=== PATIENT | female | born 1985 | race Caucasian/White ===

== ENCOUNTER 2021-12-01 17:38 | Emergency (ER) | payer MEDICAID, SELFPAY ==
[2021-12-01 18:10] VITALS: BP 162/74; PULSE 68; RESP 16; TEMP 37.1; O2SAT 100; BMI 26.0
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
[2021-12-01] MEDS: clindamycin 150 mg Capsule 300 MG PO (19:24)
[2021-12-01] MEDS: HYDROcodone-acetaminophen 5-325 mg Tablet 1 TAB PO (19:24)
[2021-12-01] MEDS: dexamethasone 10 mg/mL INJ IM (19:25)
== END 2021-12-01 19:42 | disposition home or self-care (01) ==
PROVIDERS: Emergency Provider Nurse Practitioner Family
DX: K04.7 Periapical abscess without sinus (principal)
CPT/HCPCS: 96372; 99283; J1100

== ENCOUNTER 2021-12-24 18:47 | Emergency (ER) | payer MEDICAID, SELFPAY ==
[2021-12-24 18:59] VITALS: BP 132/87; PULSE 72; RESP 18; TEMP 36.8; O2SAT 99; BMI 25.1
--- NOTE | 2021-12-24 19:41 | CTR_ITS ---
PROCEDURE INFORMATION: Exam: CT Abdomen And Pelvis Without Contrast Exam date and time: 12/24/2021 7:41 PM Age: 36 years old Clinical indication: Abdominal pain; Right; Patient HX: HX of stones C/O R flank pain w difficulty urinating TECHNIQUE: Imaging protocol: Computed tomography of the abdomen and pelvis without contrast. Radiation optimization: All CT scans at this facility use at least one of these dose optimization techniques: automated exposure control; mA and/or kV adjustment per patient size (includes targeted exams where dose is matched to clinical indication); or iterative reconstruction. COMPARISON: CT Abdomen/Pelvis Renal [id number] 02/13/2019 10:43 PM RADIATION DOSE METRICS: Total DLP (mGy-cm): 790.52 FINDINGS: Liver: Normal. No mass. Gallbladder and bile ducts: Normal. No calcified stones. No ductal dilation. Pancreas: Normal. No ductal dilation. Spleen: Normal. No splenomegaly. Adrenal glands: Normal. No mass. Kidneys and ureters: Multiple bilateral renal calculi. No obstructing ureteral calculus identified. No hydronephrosis or hydroureter. Stomach and bowel: Colonic constipation is present. Appendix: No evidence of appendicitis. Intraperitoneal space: Unremarkable. No free air. No significant fluid collection. Vasculature: Unremarkable. No abdominal aortic aneurysm. Lymph nodes: Unremarkable. No enlarged lymph nodes. Urinary bladder: Unremarkable as visualized. Reproductive: Unremarkable as visualized. Bones/joints: Unremarkable. No acute fracture. Soft tissues: Unremarkable. CT/CT kidney stone [id number] IMPRESSION: 1. Multiple bilateral renal calculi. No obstructing ureteral calculus identified. No hydronephrosis or hydroureter. 2. Colonic constipation is present.
[2021-12-24] MEDS: sodium chloride 0.9% 1,000 ML 999 ML IV (19:57)
[2021-12-24 20:03] VITALS: RESP 16
[2021-12-24] MEDS: HYDROmorphone 1 mg/mL INJ 1 mL IVP ×2 (20:03→21:29)
[2021-12-24] MEDS: ondansetron 2 mg/ML SDV 2 mL 4 MG IVP (20:03)
[2021-12-24 20:04] LABS: Basophils % 0.4 %; Eosinophils # 0.2 10^3/uL (0.0-0.8); Eosinophils % 3.3 %; Hematocrit 34.1 % (37.0-47.0); Hemoglobin 10.4 g/dL (11.5-15.3); Lymphocytes # 2.2 10^3/uL (0.8-4.8); Lymphocytes % 42.8 %; Mean Corpuscular HGB Conc 30.5 g/dL (30.0-36.0); Mean Corpuscular Hemoglobin 24.8 pg (28.0-34.0); Mean Corpuscular Volume 81.4 fl (81-99); Monocytes # 0.4 10^3/uL (0.2-0.9); Neutrophils # 2.33 10^3/uL (1.8-7.7); Neutrophils % 45.5 %; Nucleated Red Blood Cells % 0 %; Platelet Count 250 10^3/cmm (130-400); Red Blood Count 4.19 10^6/uL (4.1-5.3); White Blood Count 5.1 10^3/uL (4.0-10.0)
[2021-12-24 20:14] LABS: Add Urine Microscopic? YES; Bilirubin Urine Neg (Negative); Blood Urine 2+ (Negative); Glucose Urine UA Norm (Normal); Ketones Urine Negative (Negative); Leukocyte Esterase Urine 2+ (Negative); Nitrate Urine Negative (Negative); Protein Urine Neg (Negative); Specific Gravity, Urine 1.015 (1.005-1.030); Urine Appearance Turbid (CLEAR); Urine Color Yellow (Yellow); Urobilinogen Urine Norm (Negative); pH Urine 5 (5-7)
[2021-12-24] MEDS: cefTRIAXone 1,000 MG in sodium chloride 0.9% (plus) 50 ML 100 MG IV (20:18)
[2021-12-24 20:20] LABS: Lactate (Lactic Acid level) 1.8 mmol/L (0.5-2.2)
[2021-12-24 20:21] VITALS: BP 127/60; PULSE 66; RESP 16; O2SAT 94
[2021-12-24 20:22] LABS: Alanine Aminotransferase 9 U/L (0-33); Albumin Level 3.9 g/dL (3.5-5.2); Alkaline Phosphatase 44 IU/L (35-105); Anion Gap 13.9 (5-19); Aspartate Amino Transferase 12 U/L (0-32); Blood Urea Nitrogen 7 mg/dL (6-20); Carbon Dioxide 23 mmol/L (22-29); Chloride 103 mmol/L (98-107); Globulin 2.4 g/dL (1.3-4.6); Glucose 94 mg/dL (65-115); Osmolality Calculated 280 mOsm/kg (285-295); Potassium 3.9 mmol/L (3.5-5.1); Sodium 136 mmol/L (136-145); Total Bilirubin 0.2 mg/dL (0.15-1.2); Total Protein 6.3 g/dL (6.6-8.7)
[2021-12-24 20:23] LABS: Add Urine Culture? No; Bacteria Urine 2+ /hpf; Squamous Epithelial Cell Urine 55-80 /hpf (0-5); WBC Urine 25-40 /hpf (0-5)
[2021-12-24 20:25] LABS: Creatinine Clr Calc Pharmacy 229.6105
[2021-12-24 20:27] LABS: HCG, Serum Qual Negative (Negative)
--- NOTE | 2021-12-24 21:17 | ED_ITS ---
HPI - Female Genitourinary General: Chief complaint: Urogenital-Female Stated complaint: Possible Kidney Failure Time Seen by Provider: 12/24/21 19:19 Source: patient and family History of Present Illness: 36-year-old female with a history of kidney stones, multiple procedures, and pyelonephritis with sepsis. She presents with right-sided flank pain for the past 24 hours or more. She has vomited a couple of times. She has been nauseated. She says she has had a low-grade fever at home. She also says she has not been able to urinate in 12 hours or so. She notes that yesterday her urine was bloody, and stringy . MD elicited complaint: dysuria, pelvic pain and difficulty urinating Pertinent past history: pyelonephritis Onset (ago): hour(s) Location of symptoms: suprapubic, RLQ and flank Severity: moderate Female Urogenital Radiation: R Flank Quality of pain: stabbing and aching Consistency: constant and progressively worsening Vaginal discharge: none Vaginal bleeding: none Urinary symptoms: Difficulty Urinating, Dysuria, Flank Pain and Hematuria Exacerbating factors: urination Associated symptoms: Reports abdominal pain, fevers/chills and nausea; Deny short of breath, vaginal discharge or weakness Review of Systems Const: Reports: fever(s) and chills ENMT: Denies: throat pain Card: Denies: chest pain Resp: Denies: dyspnea, productive cough or non-productive cough GI: Reports: abdominal pain, nausea and vomiting; Denies: diarrhea : Reports: difficulty voiding, dysuria and hematuria; Denies: vaginal discharge Physical Exam Const: COMMON NORMALS: alert GENERAL APPEARANCE: ill appearing NUTRITIONAL APPEARANCE: thin ORIENTATION/CONSCIOUSNESS: Yes awake, Yes orien naldo to person, Yes oriented to place and Yes oriented to time HENMT: COMMON NORMALS: normocephalic and atraumatic HEAD & SCALP: normocephalic and atraumatic FACE & SINUS: normal facial exam Eye: COMMON NORMALS: Equal, round and reactive pupils present and EOMs intact bilaterally PUPIL: Yes Equal, round and reactive pupils present Chest: COMMONS NORMALS: normal inspection of the chest Resp: COMMON NORMALS: normal respiratory effort, No use of accessory muscles and clear to auscultation bilaterally AUSCULTATION: clear to auscultation bilaterally Cardio: COMMON NORMALS: regular rate and regular rhythm RATE: regular rate RHYTHM: regular rhythm GI: COMMON NORMALS: Normal to inspection, nondistended, normoactive bowel sounds present and Soft to palpation PALPATION: Yes Soft to palpation and Yes Tenderness to palpation present (GI) (Suprapubic, right flank right lower) : BLADDER/KIDNEY EXAM: Yes CVA tenderness on the right Back/Pelvis: GENERAL BACK: Yes CVA tenderness Neuro: SENSORIUM/ORIENTATION: Yes alert, Yes oriented to person, Yes oriented to place and Yes oriented to time Course Vital Signs: Vital signs: Vital Signs Temperature 98.2 F 12/24/21 18:59 Pulse Rate 82 12/24/21 22:07 Respiratory Rate 16 12/24/21 22:07 Blood Pressure 132/86 12/24/21 22:07 Pulse Oximetry 97 12/24/21 22:07 [facility] - Female Medical Decision Making 36-year-old female with right-sided flank pain. White blood cell count is 5. Hemoglobin is 10.4. BMP is normal. Urinalysis is contaminated, but does show significant leukourea and bacteriuria. CT stone protocol shows multiple bilateral renal calculi but no ureteral calculi, and no hydronephrosis or obstruction. There is some constipation present. She has received IV fluid and Rocephin here. She is received pain medication, and is feeling somewhat better. We will give her some Toradol, and allow her discharged on antibiotics and pain medication as well as antiemetics. Outpatient urology referral given her problems in the past. Lab Data : 12/24/21 19:53 12/24/21 19:53 Radiology Impressions Abdomen/Pelvis CT 12/24/21 19:41 IMPRESSION: 1. Multiple bilateral renal calculi. No obstructing ureteral calculus identified. No hydronephrosis or hydroureter. 2. Colonic constipation is present. Laboratory Results WBC 5.1 10^3/uL (4.0-10.0) 12/24/21 19:53 RBC 4.19 10^6/uL (4.1-5.3) 12/24/21 19:53 Hgb 10.4 g/dL (11.5-15.3) L 12/24/21 19:53 Hct 34.1 % (37.0-47.0) L 12/24/21 19:53 MCV 81.4 fl (81-99) 12/24/21 19:53 MCH 24.8 pg (28.0-34.0) L 12/24/21 19:53 MCHC 30.5 g/dL (30.0-36.0) 12/24/21 19:53 RDW 18.0 % (12.1-15.1) H 12/24/21 19:53 Plt Count 250 10^3/cmm (130-400) 12/24/21 19:53 MPV 10.0 fL (7.4-10.4) 12/24/21 19:53 Neut % (Auto) 45.5 % 12/24/21 19:53 Lymph % (Auto) 42.8 % 12/24/21 19:53 [place] % (Auto) 8.0 % 12/24/21 19:53 Eos % (Auto) 3.3 % 12/24/21 19:53 Baso % (Auto) 0.4 % 12/24/21 19:53 Neut # (Auto) 2.33 10^3/uL (1.8-7.7) 12/24/21 19:53 Lymph # (Auto) 2.2 10^3/uL (0.8-4.8) 12/24/21 19:53 [place] # (Auto) 0.4 10^3/uL (0.2-0.9) 12/24/21 19:53 Eos # (Auto) 0.2 10^3/uL (0.0-0.8) 12/24/21 19:53 Baso # (Auto) 0.0 10^3/uL (0.0-0.1) 12/24/21 19:53 Nucleated RBC % (auto) 0 % 12/24/21 19:53 Nucleated RBCs # 0.0 /100WBC 12/24/21 19:53 Sodium 136 mmol/L (136-145) 12/24/21 19:53 Potassium 3.9 mmol/L (3.5-5.1) 12/24/21 19:53 Chloride 103 mmol/L (98-107) 12/24/21 19:53 Carbon Dioxide 23 mmol/L (22-29) 12/24/21 19:53 Anion Gap 13.9 (5-19) 12/24/21 19:53 BUN 7 mg/dL (6-20) 12/24/21 19:53 Creatinine 0.3 mg/dL (0.5-0.9) L 12/24/21 19:53 GFR Calculation 249.0 mL/min (90-130) H 12/24/21 19:53 Glucose 94 mg/dL (65-115) 12/24/21 19:53 Calculated Osmolality 280 mOsm/kg (285-295) L 12/24/21 19:53 Lactate 1.8 mmol/L (0.5-2.2) 12/24/21 19:53 Calcium 9.0 mg/dL (8.5-10.5) 12/24/21 19:53 Total Bilirubin 0.2 mg/dL (0.15-1.2) 12/24/21 19:53 AST 12 U/L (0-32) 12/24/21 19:53 ALT 9 U/L (0-33) 12/24/21 19:53 Alkaline Phosphatase 44 IU/L (35-105) 12/24/21 19:53 C-Reactive Protein 3.0 mg/L (0.0-4.9) 12/24/21 19:53 Total Protein 6.3 g/dL (6.6-8.7) L 12/24/21 19:53 Albumin 3.9 g/dL (3.5-5.2) 12/24/21 19:53 Globulin 2.4 g/dL (1.3-4.6) 12/24/21 19:53 HCG, Qual Negative (Negative) 12/24/21 19:53 Urine Color Yellow (Yellow) 12/24/21 20:00 Urine Appearance Turbid (CLEAR) 12/24/21 20:00 Urine pH 5 (5-7) 12/24/21 20:00 Ur Specific [place] 1.015 (1.005-1.030) 12/24/21 20:00 Urine Protein Neg (Negative) 12/24/21 20:00 Urine Glucose (UA) Norm (Normal) 12/24/21 20:00 Urine Ketones Negative (Negative) 12/24/21 20:00 Urine Blood 2+ (Negative) H 12/24/21 20:00 Urine Nitrate Negative (Negative) 12/24/21 20:00 Urine Bilirubin Neg (Negative) 12/24/21 20:00 Urine Urobilinogen Norm mg/dL (Negative) 12/24/21 20:00 Ur Leukocyte Esterase 2+ (Negative) H 12/24/21 20:00 Urine RBC 5-10 /hpf (0-2) H 12/24/21 20:00 Urine WBC 25-40 /hpf (0-5) H 12/24/21 20:00 Ur Squamous Epith Cells 55-80 /hpf (0-5) H 12/24/21 20:00 Amorphous Sediment Not Reportable 12/24/21 20:00 Urine Bacteria 2+ /hpf (NONE) H 12/24/21 20:00 Discharge Plan Discharge Patient Disposition: Home Clinical Impression: Pyelonephritis Condition: Stable Prescriptions: New Zofran 4 mg tablet 4 mg PO Q6H PRN (Reason: nausea and vomiting) Qty: 10 0RF Percocet 7.5-325 mg tablet 1 tab PO Q6H PRN (Reason: pain) Qty: 10 0RF cefdinir 300 mg capsule 300 mg PO BID Qty: 14 0RF Discontinued hydrocodone-acetaminophen 5-325 mg tablet 1 tab PO Q6H PRN (Reason: pain) Qty: 7 0RF Discharge Orders: Discharge ED (Routine); Ordered 12/24/21 Ordered By: Al Yanes Referrals: Jairon Segovia MD [Physician] - Discharge Diet: Advance as tolerated Discharge Activity: Increase activity as tolerated Patient Instructions: Kidney Infection (ED), Opioid Safety Activity Restrictions/Additional Instructions: Return for fever greater than 100 despite 2-3 doses of antibiotics, vomiting liquids or medications, worsening pain despite treatment, any other concerning symptoms. A case management order has been placed for outpatient referral to uro logy. Coding Level of Care Code ED Hand Sewer Shoes for Chg Fwd Exam Comprehensive
[2021-12-24 21:29] VITALS: RESP 16
[2021-12-24 22:07] VITALS: BP 132/86; PULSE 82; RESP 16; O2SAT 97
[2021-12-24] MEDS: oxyCODONE-APAP 5-325 mg Tablet 2 TAB PO (22:37)
[2021-12-24 22:38] VITALS: BP 130/80; PULSE 77; RESP 16; O2SAT 98
[2021-12-24] MEDS: ondansetron 4 MG Tablet 8 MG PO (22:45)
--- NOTE | 2021-12-26 05:33 | DCPLANNER ---
Addendum entered by Jimena Kang 01/02/22 06:43: Patient had a follow up appointment scheduled for 01.01.[address] Romero office -patient did attend appointment. Original Note: vendor relationship manager had message to schedule a follow up appointment for patient with Dr. Segovia. vendor relationship manager emailed patients information to Deepak Caballero and Julie in the office of Dr. Segovia. Patients information will be printed and reviewed. Clinic will call patient with appointment information.
== END 2021-12-24 22:45 | disposition home or self-care (01) ==
PROVIDERS: Emergency Provider Emergency Medicine
DX: N12 Tubulo-interstitial nephritis, not specified as acute or chronic (principal)
CPT/HCPCS: 74176; 80053; 81001; 83605; 84703; 85025; 86140; 87040; 96361; 96365; 96375; 96376; 99284; J0696; J1170; J2405; J7030; Q0162

== ENCOUNTER 2022-01-01 13:59 | Outpatient (CLI) | payer MEDICAID, SELFPAY ==
--- NOTE | 2022-01-01 14:00 | XR_ITS ---
WS: [id number] KUB, AP view, 01/01/2022 Clinical Data: PYELONEPHRITIS Comparison: KUB, 02/18/2019. Findings: Bilateral renal calculi are seen with little change. Both kidneys are obscured by overlying bowel gas and fecal matter. No pelvic calcifications are seen. There is a minimal lumbar levoscoliosis. XR/XR KUB [id number] Impression: No change in bilateral renal calculi.
== END 2022-01-01 14:00 | disposition home or self-care (01) ==
LOC: RAD 14:00
PROVIDERS: PCP Urology; Visit Provider Urology
DX: N12 Tubulo-interstitial nephritis, not specified as acute or chronic (principal); N39.0 Urinary tract infection, site not specified
CPT/HCPCS: 74018; 81003; 87077; 87086; 87184

== ENCOUNTER 2022-05-06 00:06 | Emergency (ER) | payer BC, MEDICAID, SELFPAY ==
[2022-05-06 00:12] VITALS: BP 164/84; PULSE 90; RESP 18; TEMP 36.5; O2SAT 100; BMI 25.1
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
[2022-05-06 00:47] VITALS: RESP 20; O2SAT 99
[2022-05-06] MEDS: fentaNYL 50 mcg/mL INJ 2mL 25 MCG IVP (00:47)
[2022-05-06] MEDS: ondansetron 2 mg/ML SDV 2 mL 4 MG IVP (00:48)
[2022-05-06] MEDS: sodium chloride 0.9% 1,000 ML 999 ML IV (00:48)
[2022-05-06 02:51] VITALS: RESP 18; O2SAT 98
[2022-05-06] MEDS: clindamycin 150 mg Capsule 300 MG PO (02:51)
[2022-05-06] MEDS: bacitracin ointment Pkt 1 EACH TOPICAL (02:51)
[2022-05-06] MEDS: oxyCODONE 5 mg IR Tab/Cap PO (02:51)
[2022-05-06 03:09] VITALS: BP 139/82; PULSE 87; RESP 18; O2SAT 99
== END 2022-05-06 03:13 | disposition home or self-care (01) ==
PROVIDERS: Emergency Provider Emergency Medicine; PCP Urology
DX: S61.512A Laceration without foreign body of left wrist, initial encounter (principal); S61.216A Laceration without foreign body of right little finger without damage to nail, initial encounter; W25.XXXA Contact with sharp glass, initial encounter
CPT/HCPCS: 12002; 12032; 73110; 73130; 96361; 96374; 96375; 99284; J2405; J3010; J7030

== ENCOUNTER 2022-06-20 07:36 | Outpatient (CLI) | payer BC, MEDICAID, SELFPAY ==
--- NOTE | 2022-06-20 07:49 | XR_ITS ---
WS: [id number] Exam: XR KUB [id number] Date/Time of Exam: 06/20/2022 7:51 AM Reason For Exam: N20.0 - Calculus of kidney Comparison 01/01/2022. No bowel obstruction or free air. Multiple calcifications superimpose the renal silhouettes and appar ently represent known renal stones. No sign of organ enlargement. Regional bony elements are intact. Mild lumbar scoliosis. XR/XR KUB [id number] IMPRESSION: 1. Multiple bilateral renal stones. 2. No acute abdominal process.
== END 2022-06-20 07:37 | disposition home or self-care (01) ==
LOC: RAD 07:38
PROVIDERS: PCP Nurse Practitioner; Visit Provider Urology
DX: N20.0 Calculus of kidney (principal); R33.9 Retention of urine, unspecified
CPT/HCPCS: 74018; 81003; 87086

== ENCOUNTER 2022-07-13 18:41 | Emergency (ER) | payer BC, MEDICAID, SELFPAY ==
[2022-07-13 18:55] VITALS: BP 109/76; PULSE 61; RESP 16; TEMP 36.8; O2SAT 98; BMI 24.7
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
[2022-07-13] MEDS: bacitracin ointment Pkt 1 EACH TOPICAL (19:40)
[2022-07-13] MEDS: HYDROcodone-acetaminophen 7.5-325 mg Tablet 1 TAB PO (19:40)
== END 2022-07-13 19:42 | disposition home or self-care (01) ==
PROVIDERS: Emergency Provider Nurse Practitioner Family; PCP Nurse Practitioner
DX: T23.241A Burn of second degree of multiple right fingers (nail), including thumb, initial encounter (principal); X19.XXXA Contact with other heat and hot substances, initial encounter
CPT/HCPCS: 99283

== ENCOUNTER 2022-07-30 12:34 | Emergency (ER) | payer BC, MEDICAID, SELFPAY ==
[2022-07-30 12:38] VITALS: BP 127/64; PULSE 74; RESP 18; TEMP 36.7; O2SAT 96; BMI 23.9
--- NOTE | 2022-07-30 13:00 | ED_ITS ---
HPI - Skin/Abscess/Foreign Bdy General: Chief complaint: Skin/Abscess/Foreign Body Stated complaint: Poison Jeanette all over body Time Seen by Provider: 07/30/22 13:00 History of Present Illness: 37-year-old female comes in today for complaints of rash and itching. Patient reports exposure Saturday evening. Since then patient has increasing rash and itchiness and now has swelling to the face. Patient appears nontoxic. Patient appears in no pain. Associated symptoms: Deny fever(s) Review of Systems Const: Denies: fever(s) Card: Denies: chest pain Resp: Denies: dyspnea Skin/Breast: Reports: rash PFSH ED PFSH: Medical History Bilateral kidney stones delivery delivered x 5 H/O clavicle fracture Recurrent UTI Surgical History Status post laser lithotripsy of ureteral calculus Status post placement of ureteral stent Family History Mother , age 50 Cancer throat Lung disease Father Multiple sclerosis Social History Smoking and tobacco status: former smoker Alcohol intake: never Marital status: Current occupational status: unemployed History of recent travel: No Female Reproductive History: Date of last menstrual period: 07/11/22 Physical Exam Const: COMMON NORMALS: alert HENMT: COMMON NORMALS: Normal external nose present HEAD & SCALP: other (Mild facial swelling and redness.) NOSE: Normal external nose present THROAT: posterior oropharynx normal Neck/C-Spine: COMMON NORMALS: full ROM Resp: COMMON NORMALS: normal respiratory effort and clear to auscultation bilaterally AUSCULTATION: clear to auscultation bilaterally Cardio: COMMON NORMALS: regular rate RATE: regular rate Extremity: COMMON NORMALS: normal to inspection Neuro: SENSORIUM/ORIENTATION: Yes alert Skin: RASHES: rashes noted (Patchy rash to arms, neck and face.) Course Vital Signs: Vital signs: Vital Signs Temperature 98.0 F 07/30/22 12:38 Pulse Rate 74 07/30/22 12:38 Respiratory Rate 18 07/30/22 12:38 Blood Pressure 127/64 07/30/22 12:38 Pulse Oximetry 96 07/30/22 12:38 Oxygen Delivery Me thod 07/30/22 12:38 MDM - Skin/Abscess/Foreign Bdy Medicial Decision Making Patient comes in today for complaints of rash secondary to poison jeanette exposure. On exam patient has patchy rash to the upper extremities, neck and face. Patient also has some mild facial swelling and redness. Respirations are even lungs are clear to auscultation. Differential diagnosis includes but not limited to contact dermatitis, anaphylaxis, pruritus. No signs of serious reaction is noted. Patient does not appear to have anaphylaxis. Patient appears to have contact dermatitis to most likely poison jeanette or other similar plant. Patient was given 40 mg of triamcinolone IM to help with facial swelling and skin reaction. We will continue with prednisone 20 mg daily for 10 days. Reviewed usual course for poison jeanette and the reasons for taking prednisone and other steroids to help with facial swelling. Discussed the use of using antihistamine and calamine lotion for comfort. Patient reported understanding of care plan need for follow-up or return to ER. Discharge Plan Discharge Patient Disposition: Home Clinical Impression: Contact dermatitis Qualifiers: Contact dermatitis type: unspecified Contact dermatitis trigger: non-food plants Qualified Code(s): L25.5 - Unspecified contact dermatitis due to plants, except food Condition: Stable Prescriptions: New prednisone 20 mg tablet 20 mg PO DAILY Qty: 10 0RF No Action levothyroxine 100 mcg capsule 100 mcg PO BID potassium citrate 10 mEq (1,080 mg) tablet extended release 10 meq PO BID Qty: 60 12RF bacitracin 500 unit/gram ointment 1 applic topical BID Qty: 28 0RF hydrocodone-acetaminophen 5-325 mg tablet 1 tab PO Q6H PRN (Reason: pain) 3 Days Qty: 6 0RF Discharge Orders: Discharge ED (Routine); Ordered 07/30/22 Ordered By: Bryant Gruber Referrals: Isaias Restrepo FNP [Primary Care Provider] - Discharge Diet: Usual diet Discharge Activity: Increase activity as tolerated Patient Instructions: Poison Jeanette (ED) Activity Restrictions/Additional Instructions: Use diphenhydramine, Benadryl, as needed for itching and discomfort. Drink plenty of water with medication. If Benadryl makes you too sleepy you may use Claritin or Zyrtec, 1-2 tabs twice a day for itching and discomfort. Take prednisone 20 mg daily for the next 10 days. Use calamine lotion for further comfort. Follow-up with primary care as needed. Return to ER for new concerns. Coding Level of Care Code ED Pediatric Critical Care Nurse for Prisca Case
[2022-07-30] MEDS: triamcinolone 40 mg/mL SDV IM (13:12)
== END 2022-07-30 13:18 | disposition home or self-care (01) ==
PROVIDERS: Emergency Provider Nurse Practitioner Family; PCP Nurse Practitioner
DX: L25.5 Unspecified contact dermatitis due to plants, except food (principal); Z87.891 Personal history of nicotine dependence
CPT/HCPCS: 96372; 99284; J3301

== ENCOUNTER 2022-08-08 06:49 | Emergency (ER) | payer BC, MEDICAID, SELFPAY ==
[2022-08-08] VITALS (10 sets, daily range): BP systolic 100–188; BP diastolic 48–90; PULSE 48–65; RESP 14–22; TEMP 36.6; O2SAT 95–100; BMI 24.7
--- NOTE | 2022-08-08 06:58 | ED_ITS ---
HPI - Abdominal Pain General: Chief Complaint: Abdominal Pain Stated Complaint: Flank Pain Time Seen by Provider: 08/08/22 06:50 Source: patient and EMS Mode of arrival: EMS Limitations: no limitations History of Present Illness: Patient with complaints of right flank pain and right lower quadrant abdominal pain since 130 this morning. Patient states she has a history of multiple kidney stones. She states she is on multiple ureteral stents for kidney stones. She is also had history of urinary tract infections and sepsis from urinary tract infection. She reports she has had a tubal ligation. She was given 30 mg of Toradol and 4 mg Zofran prior to arrival by EMS. She already has established care with urologist Dr. Segovia. elicited complaint: abdominal pain and flank pain Pertinent past history: kidney stones Onset (ago): hour(s) (6) Pain Consistency: constant and colicky Location: RLQ and R flank Severity: similar to previous episodes Pain scale (0-10): 10 Quality: cramping and sharp Radiation: RLQ Exacerbating factors: nothing Relieving factors: nothing Associated Symptoms: Reports dysuria, hematuria, nausea and vomiting; Denies chills and fever(s) Treatments prior to arrival: other (Toradol and Zofran by EMS) Related Data: Date of Last Menstrual Period: 07/10/22 Review of Systems Const: Denies: fever(s) or chills Eyes: Denies: change in vision ENMT: Denies: throat pain Card: Denies: chest pain or palpitations Resp: Denies: dyspnea or wheezing GI: Reports: abdominal pain, nausea and vomiting : Reports: flank pain, dysuria and hematuria Musc: Denies: neck pain Skin/Breast: Denies: rash or pruritus Neuro: Denies: headache(s) or numbness in extremities Psych: Reports: anxiety Tc/Lymph: Denies: enlarged lymph nodes PFSH ED PFSH: Medical History Bilateral kidney stones delivery delivered x 5 H/O clavicle fracture Recurrent UTI Surgical History Status post laser lithotripsy of ureteral calculus Status post placement of ureteral stent Family History Mother , age 50 Cancer throat Lung disease Father Multiple sclerosis Social History Smoking and tobacco status: former smoker Alcohol intake: never Marital status: Current occupational status: unemployed History of recent travel: No Female Reproductive History: Date of last menstrual period: 07/10/22 Physical Exam Const: COMMON NORMALS: patient oriented x3, alert and well nourished GENERAL APPEARANCE: cooperative OTHER: Moderate anxiety HENMT: COMMON NORMALS: normocephalic and atraumatic HEAD & SCALP: normocephalic and atraumatic Eye: COMMON NORMALS: EOMs intact bilaterally Neck/C-Spine: COMMON NORMALS: full ROM, no lymphadenopathy, supple and no JVD Lymph: LYMPHATIC: no lymphadenopathy noted Chest: COMMONS NORMALS: normal inspection of the chest and normal palpation of entire chest wall Resp: COMMON NORMALS: normal respiratory effort, No retractions, No use of accessory muscles and clear to auscultation bilaterally AUSCULTATION: clear to auscultation bilaterally Cardio: COMMON NORMALS: no JVD, regular rate, regular rhythm and Peripheral pulses 2+ throughout RATE: regular rate RHYTHM: regular rhythm PERIPHERAL PULSES: Peripheral pulses 2+ throughout GI: COMMON NORMALS: Soft to palpation PALPATION: Yes Soft to palpation OTHER: Moderate right lower quadrant abdominal pain. Normoactive bowel sounds. No hepatosplenomegaly. : OTHER: Moderate right flank pain. No rash. Back/Pelvis: OTHER: Moderate right flank pain. Midline of back is nontender. No evidence of injury. Extremity: COMMON NORMALS: normal to inspection and full ROM Neuro: COMMON NORMALS: patient oriented x3, CN's II-XII intact bilaterally, moves all extremities, no focal motor deficits and no sensory deficits noted SENSORIUM/ORIENTATION: Yes alert Psych: COMMON NORMALS: mental status grossly normal, Normal thought process present, cooperative and speech normal SPEECH: Yes normal speech THOUGHT PROCESS: Normal thought process present Skin: COMMON NORMALS: no rashes or lesions noted GENERAL SKIN EXAM: no rashes or lesions noted OTHER: No rash or ecchymoses. Course Vital Signs: Vital signs: Vital Signs Temperature 97.9 F 08/08/22 06:49 Pulse Rate 50 L 08/08/22 09:23 Respiratory Rate 14 08/08/22 09:23 Blood Pressure 100/48 08/08/22 09:23 Pulse Oximetry 98 08/08/22 09:23 Oxygen Delivery Me thod 08/08/22 06:55 MDM - Abdominal Pain Medical Decision Making Likely patient has renal colic due to ureterolithiasis. 1022: Patient feeling much better. Nausea has resolved. Lab Data : 08/08/22 07:00 08/08/22 07:00 Labs/Radiology: Radiology Impressions Abdomen/Pelvis CT 08/08/22 06:57 IMPRESSION: Passing right UVJ/intravesical stone, resulting in [id number] hydronephrosis. Laboratory Results WBC 19.8 10^3/uL (4.0-10.0) H 08/08/22 07:00 RBC 5.08 10^6/uL (4.1-5.3) 08/08/22 07:00 Hgb 12.6 g/dL (11.5-15.3) 08/08/22 07:00 Hct 41.5 % (37.0-47.0) 08/08/22 07:00 MCV 81.7 fl (81-99) 08/08/22 07:00 MCH 24.8 pg (28.0-34.0) L 08/08/22 07:00 MCHC 30.4 g/dL (30.0-36.0) 08/08/22 07:00 RDW 17.2 % (12.1-15.1) H 08/08/22 07:00 Plt Count 370 10^3/cmm (130-400) 08/08/22 07:00 MPV 11.2 fL (7.4-10.4) H 08/08/22 07:00 Neut % (Auto) 77.2 % 08/08/22 07:00 Lymph % (Auto) 14.9 % 08/08/22 07:00 [place] % (Auto) 6.3 % 08/08/22 07:00 Eos % (Auto) 0.3 % 08/08/22 07:00 Baso % (Auto) 0.3 % 08/08/22 07:00 Neut # (Auto) 15.31 10^3/uL (1.8-7.7) H 08/08/22 07:00 Lymph # (Auto) 3.0 10^3/uL (0.8-4.8) 08/08/22 07:00 [place] # (Auto) 1.2 10^3/uL (0.2-0.9) H 08/08/22 07:00 Eos # (Auto) 0.1 10^3/uL (0.0-0.8) 08/08/22 07:00 Baso # (Auto) 0.1 10^3/uL (0.0-0.1) 08/08/22 07:00 Nucleated RBC % (auto) 0 % 08/08/22 07:00 Nucleated RBCs # 0.0 /100WBC 08/08/22 07:00 Sodium 135 mmol/L (136-145) L 08/08/22 07:00 Potassium 4.2 mmol/L (3.5-5.1) 08/08/22 07:00 Chloride 98 mmol/L (98-107) 08/08/22 07:00 Carbon Dioxide 24 mmol/L (22-29) 08/08/22 07:00 Anion Gap 17.2 (5-19) 08/08/22 07:00 BUN 14 mg/dL (6-20) 08/08/22 07:00 Creatinine 0.4 mg/dL (0.5-0.9) L 08/08/22 07:00 GFR Calculation 177.7 mL/min (90-130) H 08/08/22 07:00 Glucose 134 mg/dL (65-115) H 08/08/22 07:00 Calculated Osmolality 282 mOsm/kg (285-295) L 08/08/22 07:00 Calcium 9.5 mg/dL (8.5-10.5) 08/08/22 07:00 Urine Color Yellow (Yellow) 08/08/22 07:00 Urine Appearance Sl hazy (CLEAR) A 08/08/22 07:00 Urine pH 8 (5-7) H 08/08/22 07:00 Ur Specific [place] 1.010 (1.005-1.030) 08/08/22 07:00 Urine Protein Neg (Negative) 08/08/22 07:00 Urine Glucose (UA) Norm (Normal) 08/08/22 07:00 Urine Ketones Negative (Negative) 08/08/22 07:00 Urine Blood 2+ (Negative) H 08/08/22 07:00 Urine Nitrate Negative (Negative) 08/08/22 07:00 Urine Bilirubin Neg (Negative) 08/08/22 07:00 Urine Urobilinogen Norm mg/dL (Negative) 08/08/22 07:00 Ur Leukocyte Esterase Negative (Negative) 08/08/22 07:00 Urine RBC 5-10 /hpf (0-2) H 08/08/22 07:00 Urine WBC 5-10 /hpf (0-5) H 08/08/22 07:00 Ur Squamous Epith Cells 0-4 /hpf (0-5) H 08/08/22 07:00 Amorphous Sediment 2+ /hpf 08/08/22 07:00 Urine Bacteria Trace /hpf (NONE) 08/08/22 07:00 Urine Mucus 1+ /hpf 08/08/22 07:00 Urine HCG, Qual Negative (Negative) 08/08/22 07:[address] Abd/Pel: Radiologist's impression: PROCEDURE INFORMATION: Exam: CT Abdomen And Pelvis Without Contrast Exam date and time: 08/08/2022 7:24 AM Age: 37 years old Clinical indication: Abdominal pain; Flank; Right; Prior surgery; Surgery type: , tubal, lithro; Additional info: Flank pain, right flank pain, right lower quadrant abdominal pain. TECHNIQUE: Imaging protocol: Computed tomography of the abdomen and pelvis without contrast. Radiation optimization: All CT scans at this facility use at least one of these dose optimization techniques: automated exposure control; mA and/or kV adjustment per patient size (includes targeted exams where dose is matched to clinical indication); or iterative reconstruction. COMPARISON: CT kidney stone [id number] 12/24/2021 8:37 PM RADIATION DOSE METRICS: Total DLP (mGy-cm): 386.39 FINDINGS: Liver: There is an ill-defined focus of decreased attenuation along the periphery of segment VIII of the liver, which may be artifactual. The liver is otherwise unremarkable. Gallbladder and bile ducts: Normal. No calcified stones. No ductal dilation. Pancreas: Normal. No ductal dilation. Spleen: There is tiny calcific densities scattered throughout the spleen, likely sequela of previous granulomatous disease. The spleen is otherwise unremarkable. Adrenal glands: Normal. No mass. Kidneys and ureters: See Urinary bladder finding. Stomach and bowel: Unremarkable. No obstruction. No mucosal thickening. Appendix: No evidence of appendicitis. Intraperitoneal space: Unremarkable. No free air. No significant fluid collection. Vasculature: Unremarkable. No abdominal aortic aneurysm. Lymph nodes: Unremarkable. No enlarged lymph nodes. Urinary bladder: There is a 0.5 cm intravesical/right UVJ obstructing stone, resulting in [id number] hydronephrosis. Additional bilateral nonobstructing stones seen. Reproductive: Unremarkable as visualized. Bones/joints: Unremarkable. No acute fracture. Soft tissues: A small fat containing umbilical hernia is present. CT/CT kidney stone [id number] IMPRESSION: Passing right UVJ/intravesical stone, resulting in [id number] hydronephrosis. ? Dictated By: Lew Ramirez Signed By: Lew Ramirez Signed Date/Time: 08/08/22828 Discharge Plan Discharge Patient Disposition: Home Clinical Impression: Right flank pain, Renal colic, Kidney stone on right side Urinary tract infection Qualifiers: Urinary tract infection type: site unspecified Hematuria presence: with hematuria Qualified Code(s): N39.0 - Urinary tract infection, site not specified Condition: Stable Prescriptions: New oxycodone 5 mg tablet 5 mg PO Q6H PRN (Reason: pain) Qty: 12 0RF Reglan 10 mg tablet 10 mg PO Q6H PRN (Reason: nausea and vomiting) Qty: 14 1RF cephalexin 500 mg capsule 500 mg PO QID 7 Days Qty: 28 0RF Rx Instructions: for infection Flomax 0.4 mg capsule 0.4 mg PO DAILY Qty: 10 1RF No Action potassium citrate 10 mEq (1,080 mg) tablet extended release 10 meq PO BID Qty: 60 12RF levothyroxine 100 mcg Tablet 100 mcg PO BID prednisone 20 mg tablet 20 mg PO DAILY Qty: 10 0RF Rx Instructions: rx filled 07/31/22 10d/s Discharge Orders: Discharge ED (Routine); Ordered 08/08/22 Ordered By: Kushal Prajapati Referrals: Isaias Restrepo FNP [Primary Care Provider] - Jairon Segovia MD [Physician] - 1-3 days (as needed) Discharge Diet: Advance as tolerated Discharge Activity: Increase activity as tolerated Patient Instructions: Kidney Stones (ED), Abdominal Pain (ED), Opioid Safety, Pain Management Activity Restrictions/Additional Instructions: Drink plenty fluids. Take cephalexin as prescribed. Start cephalexin tomorrow morning. You have a 5 mm stone that may pass into your bladder. 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
[2022-08-08] MEDS: HYDROmorphone 1 mg/mL INJ 1 mL 0.5 MG IVP ×3 (07:08→08:59)
[2022-08-08] MEDS: ondansetron 2 mg/ML SDV 2 mL 4 MG IVP (07:09)
[2022-08-08] MEDS: sodium chloride 0.9% 1,000 ML 999 ML IV ×2 (07:10→09:00)
[2022-08-08 07:29] LABS: Basophils # 0.1 10^3/uL (0.0-0.1); Basophils % 0.3 %; Eosinophils # 0.1 10^3/uL (0.0-0.8); Eosinophils % 0.3 %; Hematocrit 41.5 % (37.0-47.0); Hemoglobin 12.6 g/dL (11.5-15.3); Lymphocytes % 14.9 %; Mean Corpuscular HGB Conc 30.4 g/dL (30.0-36.0); Mean Corpuscular Hemoglobin 24.8 pg (28.0-34.0); Mean Corpuscular Volume 81.7 fl (81-99); Mean Platelet Volume 11.2 fL (7.4-10.4); Monocytes # 1.2 10^3/uL (0.2-0.9); Monocytes % 6.3 %; Neutrophils # 15.31 10^3/uL (1.8-7.7); Neutrophils % 77.2 %; Nucleated Red Blood Cells % 0 %; Platelet Count 370 10^3/cmm (130-400); Red Blood Count 5.08 10^6/uL (4.1-5.3); Red Cell Distribution Width 17.2 % (12.1-15.1); White Blood Count 19.8 10^3/uL (4.0-10.0)
[2022-08-08 07:38] LABS: Add Urine Culture? No; Amorphous Sediment Urine 2+ /hpf; Bacteria Urine TRACE /hpf; Bilirubin Urine Neg (Negative); Blood Urine 2+ (Negative); Glucose Urine UA Norm (Normal); Ketones Urine Negative (Negative); Leukocyte Esterase Urine Negative (Negative); Mucus Urine 1+ /hpf; Nitrate Urine Negative (Negative); Protein Urine Neg (Negative); Squamous Epithelial Cell Urine 0-4 /hpf (0-5); Urine Appearance SL Hazy (CLEAR); Urine Color Yellow (Yellow); Urobilinogen Urine Norm (Negative); pH Urine 8 (5-7)
[2022-08-08 07:40] LABS: Anion Gap 17.2 (5-19); Blood Urea Nitrogen 14 mg/dL (6-20); Calcium 9.5 mg/dL (8.5-10.5); Carbon Dioxide 24 mmol/L (22-29); Chloride 98 mmol/L (98-107); Glomerular Filtration Rate 177.7 mL/min (90-130); Glucose 134 mg/dL (65-115); Osmolality Calculated 282 mOsm/kg (285-295); Potassium 4.2 mmol/L (3.5-5.1); Sodium 135 mmol/L (136-145)
[2022-08-08] MEDS: metoclopramide 5 mg/mL SDV 2 mL 10 MG IVP (08:59)
[2022-08-08] MEDS: tamsulosin 0.4 mg Capsule PO (09:31)
[2022-08-08] MEDS: cefTRIAXone 1,000 MG in sodium chloride 0.9% (plus) 50 ML 100 MG IV (09:55)
== END 2022-08-08 10:56 | disposition home or self-care (01) ==
PROVIDERS: Emergency Provider Family Medicine; PCP Nurse Practitioner
DX: N39.0 Urinary tract infection, site not specified (principal); N20.0 Calculus of kidney; Z87.440 Personal history of urinary (tract) infections; Z87.442 Personal history of urinary calculi; Z87.891 Personal history of nicotine dependence
CPT/HCPCS: 74176; 80048; 81001; 81025; 85025; 87040; 96361; 96365; 96375; 96376; 99285; J0696; J1170; J2405; J2765; J7030

== ENCOUNTER 2022-10-17 21:03 | Emergency (ER) | payer BC, MEDICAID, SELFPAY ==
[2022-10-17 21:05] VITALS: BP 119/72; PULSE 81; RESP 16; TEMP 36.8; O2SAT 95
--- NOTE | 2022-10-17 21:39 | XRR_ITS ---
PROCEDURE INFORMATION: Exam: XR Abdomen Exam date and time: 10/17/2022 9:44 PM Age: 37 years old Clinical indication: Abdominal pain; Flank; Right; Additional info: RT flank pain, HX renal stones TECHNIQUE: Imaging protocol: Radiologic exam of the abdomen. Views: Frontal supine view of the abdomen. 1 View. COMPARISON: CT kidney stone [id number] 08/08/2022 7:24 AM FINDINGS: Gastrointestinal tract: Normal. No bowel dilation. Intraperitoneal space: There is a 4 mm calcification projecting in the right hemipelvis. Organs: Several stones again noted in both kidneys. Bones/joints: Unremarkable. XR/XR KUB [id number] IMPRESSION: 1. 4 mm calcification projecting in the right hemipelvis, potentially a stone in the distal ureter/bladder. 2. Several stones again noted in both kidneys.
--- NOTE | 2022-10-17 21:57 | ED_ITS ---
HPI - Back Pain/Injury General: Chief Complaint: Back Pain/Injury Stated Complaint: back pain Time Seen by Provider: 10/17/22 21:51 History of Present Illness: A 37-year-old female comes in today with complaints of right flank pain. Patient reports pain started last night. Patient had contacted Dr. Segovia's office this morning and is scheduled for appointment on Saturday. Patient was recommended to come to the ER for worsening pain and discomfort. Patient had increased pain tonight with some nausea. Patient appears nontoxic. Patient appears in mild to moderate pain. Patient has a long history of renal calculi. Associated symptoms: Reports hematuria Review of Systems : Reports: flank pain and hematuria PFSH ED 2 PFSH: Medical History Bilateral kidney stones delivery delivered x 5 H/O clavicle fracture Recurrent UTI Surgical History Status post laser lithotripsy of ureteral calculus Status post placement of ureteral stent Family History Mother , age 50 Cancer throat Lung disease Father Multiple sclerosis Social History Smoking and tobacco status: former smoker Alcohol intake: never Marital status: Current occupational status: unemployed History of recent travel: No Female Reproductive History: Date of last menstrual period: 07/10/22 Physical Exam Const: COMMON NORMALS: alert HENMT: COMMON NORMALS: normocephalic HEAD & SCALP: normocephalic Resp: COMMON NORMALS: normal respiratory effort and clear to auscultation bilaterally AUSCULTATION: clear to auscultation bilaterally Cardio: COMMON NORMALS: regular rate and regular rhythm RATE: regular rate RHYTHM: regular rhythm GI: COMMON NORMALS: Soft to palpation PALPATION: Yes Soft to palpation : BLADDER/KIDNEY EXAM: Yes CVA tenderness on the right Back/Pelvis: GENERAL BACK: Yes CVA tenderness Extremity: COMMON NORMALS: normal to inspection Neuro: SENSORIUM/ORIENTATION: Yes alert Skin: COMMON NORMALS: turgor normal GENERAL SKIN EXAM: turgor normal Course Vital Signs: Vital signs: Vital Signs Temperature 98.2 F 10/17/22 21:05 Pulse Rate 81 10/17/22 21:05 Respiratory Rate 22 H 10/17/22 22:18 Blood Pressure 119/72 10/17/22 21:05 Pulse Oximetry 95 10/17/22 21:05 Oxygen Delivery Me thod 10/17/22 21:05 MDM - Back Pain/Injury Medical Decision Making 37-year-old female comes in today with complaints of right flank pain. On exam patient has some CVA tenderness to percussion. Abdomen soft nontender. Skin is warm and dry. Vital signs are normal. Differential diagnosis includes not limited to urinary tract infection, renal colic, ureteral calculi. KUB notes a distal stone approximately 4 mm, and multiple stones in bilateral kidneys. The urine showed some slight white blood cells but nothing significant. We will continue patient on pain medication, medication for nausea, and tamsulosin. Patient has appointment to follow-up with Dr. Segovia. Recommend return to the ER for worsening symptoms. Labs Radiology Impressions KUB X-Ray 10/17/22 21:39 IMPRESSION: 1. 4 mm calcification projecting in the right hemipelvis, potentially a stone in the distal ureter/bladder. 2. Several stones again noted in both kidneys. Laboratory Results Urine Color Yellow (Yellow) 10/17/22 22:15 Urine Appearance Clear (CLEAR) 10/17/22 22:15 Urine pH 6 (5-7) 10/17/22 22:15 Ur Specific [place] 1.015 (1.005-1.030) 10/17/22 22:15 Urine Protein Neg (Negative) 10/17/22 22:15 Urine Glucose (UA) Norm (Normal) 10/17/22 22:15 Urine Ketones Negative (Negative) 10/17/22 22:15 Urine Blood Neg (Negative) 10/17/22 22:15 Urine Nitrate Negative (Negative) 10/17/22 22:15 Urine Bilirubin Neg (Negative) 10/17/22 22:15 Urine Urobilinogen Norm mg/dL (Negative) 10/17/22 22:15 Ur Leukocyte Esterase Trace (Negative) H 10/17/22 22:15 Urine RBC None /hpf (0-2) 10/17/22 22:15 Urine WBC 5-10 /hpf (0-5) H 10/17/22 22:15 Ur Squamous Epith Cells 0-4 /hpf (0-5) H 10/17/22 22:15 Amorphous Sediment Not Reportable 10/17/22 22:15 Urine Bacteria Trace /hpf (NONE) 10/17/22 22:15 Urine HCG, Qual Negative (Negative) 10/17/22 22:15 Discharge Plan Discharge Patient Disposition: Home Clinical Impression: Renal colic Condition: Stable Prescriptions: New hydrocodone-acetaminophen 5-325 mg tablet 1 tab PO Q6H PRN (Reason: pain (scale score 7-10)) Qty: 20 0RF ondansetron 4 mg tablet,disintegrating 4 mg PO Q8H PRN (Reason: nausea and vomiting) Qty: 10 0RF Continued Flomax 0.4 mg capsule 0.4 mg PO DAILY Qty: 10 1RF Discontinued oxycodone 5 mg tablet 5 mg PO Q6H PRN (Reason: pain) Qty: 12 0RF No Action potassium citrate 10 mEq (1,080 mg) tablet extended release 10 meq PO BID Qty: 60 12RF levothyroxine 100 mcg Tablet 100 mcg PO BID Reglan 10 mg tablet 10 mg PO Q6H PRN (Reason: nausea and vomiting) Qty: 14 1RF prednisone 20 mg tablet 20 mg PO DAILY Qty: 10 0RF Rx Instructions: rx filled 07/31/22 10d/s Discharge Orders: Discharge ED (Routine); Ordered 10/17/22 Ordered By: Bryant Gruber Referrals: Isaias Restrepo FNP [Primary Care Provider] - Discharge Diet: Usual diet Discharge Activity: Increase activity as tolerated Patient Instructions: Renal Colic (ED), Opioid Safety, Pain Management Activity Restrictions/Additional Instructions: Use medication as directed. Follow-up with urologist at scheduled appointment. Return to ER for worsening symptoms such as fever greater than 100.4, inability to hold fluids down, uncontrolled pain. Coding Level of Care Code ED Traveling Sales Representative for Chg Fwd Exam Comprehensive
[2022-10-17 22:10] VITALS: BP 127/70; PULSE 99; RESP 22
[2022-10-17 22:18] VITALS: RESP 22
[2022-10-17] MEDS: HYDROmorphone 1 mg/mL INJ 1 mL IM (22:18)
[2022-10-17] MEDS: ondansetron 4 MG Tablet PO (22:18)
[2022-10-17 22:51] LABS: Specific Gravity, Urine 1.015 (1.005-1.030); Urine Appearance Clear (CLEAR); Urine Color Yellow (Yellow); pH Urine 6 (5-7)
[2022-10-17 22:52] LABS: Add Urine Culture? No; Add Urine Microscopic? YES; Bacteria Urine TRACE /hpf; Bilirubin Urine Neg (Negative); Blood Urine Neg (Negative); Glucose Urine UA Norm (Normal); Ketones Urine Negative (Negative); Leukocyte Esterase Urine Trace (Negative); Nitrate Urine Negative (Negative); Protein Urine Neg (Negative); Squamous Epithelial Cell Urine 0-4 /hpf (0-5); Urobilinogen Urine Norm (Negative)
== END 2022-10-17 23:03 | disposition home or self-care (01) ==
PROVIDERS: Emergency Provider Nurse Practitioner Family; PCP Nurse Practitioner
DX: N23 Unspecified renal colic (principal); Z87.442 Personal history of urinary calculi; Z87.440 Personal history of urinary (tract) infections; Z87.891 Personal history of nicotine dependence
CPT/HCPCS: 74018; 81001; 81025; 96372; 99284; J1170; Q0162

== ENCOUNTER 2022-12-10 14:56 | Emergency (ER) | payer BC, MEDICAID, SELFPAY ==
[2022-12-10] VITALS (27 sets, daily range): BP systolic 124–144; BP diastolic 59–96; PULSE 70; RESP 18–24; TEMP 37.5; O2SAT 91–100
--- NOTE | 2022-12-10 15:30 | CTR_ITS ---
PROCEDURE INFORMATION: Exam: CT Abdomen And Pelvis Without Contrast Exam date and time: 12/10/2022 4:10 PM Age: 37 years old Clinical indication: Abdominal pain; Flank; Right; Prior surgery; Surgery type: Tubal, c-sections x 5; Additional info: Right flank pain, rule out ureterolithiasis TECHNIQUE: Imaging protocol: Computed tomography of the abdomen and pelvis without contrast. Sagittal and coronal reformatted images were created and reviewed. Radiation optimization: All CT scans at this facility use at least one of these dose optimization techniques: automated exposure control; mA and/or kV adjustment per patient size (includes targeted exams where dose is matched to clinical indication); or iterative reconstruction. Other protocol: This patient has received 2 known CTs and 0 known cardiac nuclear medicine studies in the 12 months prior to the current study. COMPARISON: CT kidney stone [id number] 08/08/2022 7:24 AM RADIATION DOSE METRICS: Total DLP (mGy-cm): 369.91 FINDINGS: Limitations: Evaluation of solid organs and vasculature is limited without intravenous contrast. This is standard protocol for evaluation of possible urolithiasis. Lungs: Visualized lungs are clear. Pleural spaces: No pleural effusion. Heart: Visualized portions of the heart are unremarkable. Liver: The liver is unremarkable. Gallbladder and bile ducts: The gallbladder is unremarkable. No biliary ductal dilatation. Pancreas: The pancreas is unremarkable. No pancreatic ductal dilatation. Spleen: Calcified granuloma in the spleen. Adrenal glands: The right and left adrenal glands are unremarkable. Kidneys and ureters: Numerous nonobstructing stones in both kidneys are stable. The largest stone in the right kidney measures 4.8 mm (series 3, image 76). The largest stone in the left kidney measures 3.9 mm (series 3, image 41). The right and left ureters are unremarkable. No hydroureteronephrosis. Stomach and bowel: No obstruction. No mucosal thickening. Appendix: The appendix is visualized and is unremarkable. No findings to suggest acute appendicitis. Intraperitoneal space: No free intraperitoneal air. No ascites. No loculated fluid collections to suggest an abscess. Vasculature: No evidence for aortic aneurysm. Lymph nodes: No lymphadenopathy. Urinary bladder: Unremarkable as visualized. Reproductive: There is an arcuate uterus. Stable 2.8 x 2.5 cm dominant follicle in the right ovary (series 3, image 136). The left ovary is unremarkable. Bones/joints: Iufd-na-woaahvrh multilevel degenerative changes in the visualized spine. Soft tissues: The extra-abdominal soft tissues are unremarkable. CT/CT abdomen pelvis wo con [id number] IMPRESSION: 1. Numerous nonobstructing stones in both kidneys are stable. No hydroureteronephrosis. 2. Stable right ovarian dominant follicle. 3. Incidental/nonacute findings are listed in the report.
[2022-12-10] MEDS: morphine 4 mg/mL SDV 1 mL IVP (15:40)
[2022-12-10] MEDS: metoclopramide 5 mg/mL SDV 2 mL 10 MG IVP (15:40)
[2022-12-10] MEDS: sodium chloride 0.9% 1,000 ML 999 ML IV (15:41)
[2022-12-10 15:56] LABS: Basophils % 0.1 %; Hematocrit 39.4 % (37.0-47.0); Hemoglobin 12.2 g/dL (11.5-15.3); Lymphocytes # 0.9 10^3/uL (0.8-4.8); Lymphocytes % 10.5 %; Mean Corpuscular Volume 77.4 fl (81-99); Mean Platelet Volume 10.7 fL (7.4-10.4); Monocytes # 0.3 10^3/uL (0.2-0.9); Monocytes % 3.3 %; Neutrophils # 7.43 10^3/uL (1.8-7.7); Neutrophils % 85.8 %; Nucleated Red Blood Cells % 0 %; Platelet Count 430 10^3/cmm (130-400); Red Blood Count 5.09 10^6/uL (4.1-5.3); Red Cell Distribution Width 16.1 % (12.1-15.1); White Blood Count 8.7 10^3/uL (4.0-10.0)
[2022-12-10 16:23] LABS: Alanine Aminotransferase 16 U/L (0-33); Albumin Level 5.2 g/dL (3.5-5.2); Alkaline Phosphatase 73 U/L (35-105); Anion Gap 23.2 (5-19); Aspartate Amino Transferase 20 U/L (0-32); Blood Urea Nitrogen 10 mg/dL (6-20); Calcium 9.6 mg/dL (8.5-10.5); Carbon Dioxide 23 mmol/L (22-29); Chloride 97 mmol/L (98-107); Creatinine Clr Calc Pharmacy 134.6853; Globulin 3.5 g/dL (1.3-4.6); Glomerular Filtration Rate 137.4 mL/min (90-130); Glucose 135 mg/dL (65-115); Lipase 20 U/L (13-60); Osmolality Calculated 291 mOsm/kg (285-295); Potassium 3.2 mmol/L (3.5-5.1); Sodium 140 mmol/L (136-145); Total Bilirubin 0.5 mg/dL (0.15-1.2); Total Protein 8.7 g/dL (6.6-8.7)
--- NOTE | 2022-12-10 16:33 | ED_ITS ---
HPI - Abdominal Pain General: Chief Complaint: Abdominal Pain Stated Complaint: abd pain/n/v Time Seen by Provider: 12/10/22 15:08 Source: patient Mode of arrival: ambulatory Limitations: no limitations History of Present Illness: This 37-year-old female with a history of bilateral kidney stones and recurrent UTIs, presents to the ER with right flank pain that started last night. Pain is sharp in nature and waxes and wanes. Patient has no fever but has nausea and vomiting. She is under the care of Dr. Segovia and has had multiple stents in the past. Associated Symptoms: Reports dysuria, nausea and vomiting; Denies chills Review of Systems Const: Denies: chills, body aches or change in appetite Card: Denies: chest pain or lightheadedness GI: Reports: nausea and vomiting : Reports: flank pain (Right) and dysuria Musc: Denies: neck pain or back pain Neuro: Denies: headache(s) or weakness in extremities Psych: Denies: depression Tc/Lymph: Denies: easy bruising All/Imm: Denies: urticaria, tongue swelling or facial swelling PFSH ED PFSH: Medical History Bilateral kidney stones delivery delivered x 5 H/O clavicle fracture Recurrent UTI Surgical History Status post laser lithotripsy of ureteral calculus Status post placement of ureteral stent Family History Mother , age 50 Cancer throat Lung disease Father Multiple sclerosis Social History Smoking and tobacco status: former smoker Alcohol intake: never Marital status: Current occupational status: unemployed Physical Exam Const: COMMON NORMALS: patient oriented x3, no limitations and alert OTHER: Patient is in moderate distress due to pain. She is actively vomiting. Chest: COMMONS NORMALS: normal inspection of the chest Resp: COMMON NORMALS: normal respiratory effort, No retractions, No use of accessory muscles and clear to auscultation bilaterally AUSCULTATION: clear to auscultation bilaterally Cardio: COMMON NORMALS: regular rate, regular rhythm and No murmurs present (Cardio) RATE: regular rate RHYTHM: regular rhythm GI: COMMON NORMALS: Normal to inspection, nondistended, normoactive bowel sounds present and non-tender OTHER: Soft abdomen, tenderness in the right flank. No distention or rigidity. Normal bowel sounds. Back/Pelvis: COMMON NORMALS: no thoracic nor lumbar tenderness Extremity: GENERAL: Yes normal exam except as noted Neuro: COMMON NORMALS: patient oriented x3 and no focal motor deficits SENSORIUM/ORIENTATION: Yes alert Psych: COMMON NORMALS: mental status grossly normal and cooperative Course Vital Signs: Vital signs: Vital Signs Temperature 99.5 F 12/10/22 15:03 Pulse Rate 70 12/10/22 15:03 Respiratory Rate 18 12/10/22 15:40 Blood Pressure 144/96 12/10/22 17:20 Pulse Oximetry 95 12/10/22 17:20 MDM - Abdominal Pain Medical Decision Making Medical decision making: Patient presents to the ER with right flank pain that started last night. CT abdomen/pelvis obtained. Though patient has numerous nonobstructing stones in both kidneys, there are no stones in the ureter to explain her pain. Otherwi se, there are no other acute findings in the abdomen. Patient will be treated symptomatically. She was advised to follow-up with her primary care physician. Reasons to return were discussed. Lab Data 12/10/22 15:15 12/10/22 15:15 Labs/Radiology: Radiology Impressions Abdomen/Pelvis CT 12/10/22 15:30 IMPRESSION: 1. Numerous nonobstructing stones in both kidneys are stable. No hydroureteronephrosis. 2. Stable right ovarian dominant follicle. 3. Incidental/nonacute findings are listed in the report. Laboratory Results WBC 8.7 10^3/uL (4.0-10.0) 12/10/22 15:15 RBC 5.09 10^6/uL (4.1-5.3) 12/10/22 15:15 Hgb 12.2 g/dL (11.5-15.3) 12/10/22 15:15 Hct 39.4 % (37.0-47.0) 12/10/22 15:15 MCV 77.4 fl (81-99) L 12/10/22 15:15 MCH 24.0 pg (28.0-34.0) L 12/10/22 15:15 MCHC 31.0 g/dL (30.0-36.0) 12/10/22 15:15 RDW 16.1 % (12.1-15.1) H 12/10/22 15:15 Plt Count 430 10^3/cmm (130-400) H 12/10/22 15:15 MPV 10.7 fL (7.4-10.4) H 12/10/22 15:15 Neut % (Auto) 85.8 % 12/10/22 15:15 Lymph % (Auto) 10.5 % 12/10/22 15:15 [place] % (Auto) 3.3 % 12/10/22 15:15 Eos % (Auto) 0.0 % 12/10/22 15:15 Baso % (Auto) 0.1 % 12/10/22 15:15 Neut # (Auto) 7.43 10^3/uL (1.8-7.7) 12/10/22 15:15 Lymph # (Auto) 0.9 10^3/uL (0.8-4.8) 12/10/22 15:15 [place] # (Auto) 0.3 10^3/uL (0.2-0.9) 12/10/22 15:15 Eos # (Auto) 0.0 10^3/uL (0.0-0.8) 12/10/22 15:15 Baso # (Auto) 0.0 10^3/uL (0.0-0.1) 12/10/22 15:15 Nucleated RBC % (auto) 0 % 12/10/22 15:15 Nucleated RBCs # 0.0 /100WBC 12/10/22 15:15 Sodium 140 mmol/L (136-145) 12/10/22 15:15 Potassium 3.2 mmol/L (3.5-5.1) L 12/10/22 15:15 Chloride 97 mmol/L (98-107) L 12/10/22 15:15 Carbon Dioxide 23 mmol/L (22-29) 12/10/22 15:15 Anion Gap 23.2 (5-19) H 12/10/22 15:15 BUN 10 mg/dL (6-20) 12/10/22 15:15 Creatinine 0.5 mg/dL (0.5-0.9) 12/10/22 15:15 GFR Calculation 137.4 mL/min (90-130) H 12/10/22 15:15 Glucose 135 mg/dL (65-115) H 12/10/22 15:15 Calculated Osmolality 291 mOsm/kg (285-295) 12/10/22 15:15 Calcium 9.6 mg/dL (8.5-10.5) 12/10/22 15:15 Total Bilirubin 0.5 mg/dL (0.15-1.2) 12/10/22 15:15 AST 20 U/L (0-32) 12/10/22 15:15 ALT 16 U/L (0-33) 12/10/22 15:15 Alkaline Phosphatase 73 U/L (35-105) 12/10/22 15:15 Total Protein 8.7 g/dL (6.6-8.7) 12/10/22 15:15 Albumin 5.2 g/dL (3.5-5.2) 12/10/22 15:15 Globulin 3.5 g/dL (1.3-4.6) 12/10/22 15:15 Lipase 20 U/L (13-60) 12/10/22 15:15 Urine Color Dark yellow (Yellow) 12/10/22 16:24 Urine Appearance Sl hazy (CLEAR) A 12/10/22 16:24 Urine pH 7 (5-7) 12/10/22 16:24 Ur Specific [place] 1.010 (1.005-1.030) 12/10/22 16:24 Urine Protein 3+ (Negative) H 12/10/22 16:24 Urine Glucose (UA) Norm (Normal) 12/10/22 16:24 Urine Ketones 3+ (Negative) H 12/10/22 16:24 Urine Blood 3+ (Negative) H 12/10/22 16:24 Urine Nitrate Negative (Negative) 12/10/22 16:24 Urine Bilirubin Neg (Negative) 12/10/22 16:24 Urine Urobilinogen Norm mg/dL (Negative) 12/10/22 16:24 Ur Leukocyte Esterase Trace (Negative) H 12/10/22 16:24 Urine RBC 25-40 /hpf (0-2) H 12/10/22 16:24 Urine WBC 5-10 /hpf (0-5) H 12/10/22 16:24 Ur Squamous Epith Cells 10-15 /hpf (0-5) H 12/10/22 16:24 Amorphous Sediment Not Reportable 12/10/22 16:24 Urine Bacteria 1+ /hpf (NONE) H 12/10/22 16:24 Discharge Plan Discharge Condition: Stable Prescriptions: No Action levothyroxine 100 mcg Tablet 100 mcg PO BID buspirone 5 mg tablet 5 mg PO BID Tylenol Ex Str Rapid Release 500 mg Tablet 500 - 1,000 mg PO Q6H PRN (Reason: Pain) sertraline 25 mg tablet 25 mg PO BID Referrals: Isaias Restrepo, SENIOR RECRUITER [Primary Care Provider] - Coding Level of Care Code ED Purchasing Agent for Prisca Case
[2022-12-10 17:14] LABS: Bilirubin Urine Neg (Negative); Blood Urine 3+ (Negative); Glucose Urine UA Norm (Normal); Ketones Urine 3+ (Negative); Leukocyte Esterase Urine Trace (Negative); Nitrate Urine Negative (Negative); Protein Urine 3+ (Negative); Urine Appearance SL Hazy (CLEAR); Urine Color Dark Yellow (Yellow); Urobilinogen Urine Norm (Negative); pH Urine 7 (5-7)
[2022-12-10 17:15] LABS: Add Urine Culture? No; Add Urine Microscopic? YES; Bacteria Urine 1+ /hpf; RBC Urine 25-40 /hpf (0-2)
== END 2022-12-10 19:35 | disposition home or self-care (01) ==
PROVIDERS: Emergency Provider Family Medicine; PCP Nurse Practitioner
DX: N20.0 Calculus of kidney (principal); Z87.442 Personal history of urinary calculi; Z87.891 Personal history of nicotine dependence
CPT/HCPCS: 74176; 80053; 81001; 83690; 85025; 96361; 96374; 96375; 99285; J2270; J2765; J7030

== ENCOUNTER 2022-12-23 16:45 | Emergency (ER) | payer BC, MEDICAID, SELFPAY ==
[2022-12-23 17:08] VITALS: BP 174/82; PULSE 110; RESP 18; TEMP 36.3; O2SAT 98; BMI 24.4
[2022-12-23 17:31] LABS: Basophils % 0.5 %; Eosinophils # 0.5 10^3/uL (0.0-0.8); Hematocrit 37.7 % (37.0-47.0); Hemoglobin 11.5 g/dL (11.5-15.3); Lymphocytes # 2.4 10^3/uL (0.8-4.8); Lymphocytes % 28.9 %; Mean Corpuscular HGB Conc 30.5 g/dL (30.0-36.0); Mean Corpuscular Hemoglobin 23.8 pg (28.0-34.0); Mean Corpuscular Volume 77.9 fl (81-99); Mean Platelet Volume 10.5 fL (7.4-10.4); Monocytes # 0.8 10^3/uL (0.2-0.9); Monocytes % 9.8 %; Neutrophils # 4.61 10^3/uL (1.8-7.7); Neutrophils % 54.6 %; Nucleated Red Blood Cells % 0 %; Platelet Count 361 10^3/cmm (130-400); Red Blood Count 4.84 10^6/uL (4.1-5.3); Red Cell Distribution Width 16.9 % (12.1-15.1); White Blood Count 8.5 10^3/uL (4.0-10.0)
[2022-12-23 17:54] LABS: Alanine Aminotransferase 16 U/L (0-33); Albumin Level 4.4 g/dL (3.5-5.2); Alkaline Phosphatase 69 U/L (35-105); Anion Gap 20.1 (5-19); Aspartate Amino Transferase 21 U/L (0-32); Blood Urea Nitrogen 7 mg/dL (6-20); Calcium 9.2 mg/dL (8.5-10.5); Carbon Dioxide 22 mmol/L (22-29); Chloride 98 mmol/L (98-107); Globulin 2.9 g/dL (1.3-4.6); Glomerular Filtration Rate 177.7 mL/min (90-130); Glucose 139 mg/dL (65-115); Lipase 18 U/L (13-60); Osmolality Calculated 284 mOsm/kg (285-295); Potassium 3.1 mmol/L (3.5-5.1); Sodium 137 mmol/L (136-145); Total Bilirubin 0.5 mg/dL (0.15-1.2); Total Protein 7.3 g/dL (6.6-8.7)
--- NOTE | 2022-12-23 18:02 | CTR_ITS ---
PROCEDURE INFORMATION: Exam: CT Abdomen And Pelvis Without Contrast Exam date and time: 12/23/2022 8:21 PM Age: 37 years old Clinical indication: Abdominal pain; Flank; Right lower quadrant (rlq); Prior surgery; Surgery date: 6+ months; Surgery type: Multiple ureteral stents, tubal, x5; Additional info: Right flank pain and hematuria TECHNIQUE: Imaging protocol: Computed tomography of the abdomen and pelvis without contrast. Axial, coronal and sagittal reformatted images were created and reviewed. Radiation optimization: All CT scans at this facility use at least one of these dose optimization techniques: automated exposure control; mA and/or kV adjustment per patient size (includes targeted exams where dose is matched to clinical indication); or iterative reconstruction. REPORTING DATA: Count of CT and Cardiac NM exams in prior 12 months: This patient has received 3 known CTs and 0 known cardiac nuclear medicine studies in the 12 months prior to the current study. COMPARISON: CT abdomen pelvis wo con [id number] 12/10/2022 4:10 PM RADIATION DOSE METRICS: Total DLP (mGy-cm): 397.1 FINDINGS: Liver: Unremarkable. Gallbladder and bile ducts: No radiodense gallstones. No biliary ductal dilatation. Pancreas: Unremarkable. Spleen: Punctate calcified splenic granuloma. Adrenal glands: Normal. No mass. Kidneys and ureters: Moderate to severe right-sided hydroureteronephrosis and periureteral stranding, secondary to a 6 mm distal right ureteral calculus (axial image 65 and coronal image 26). Nonobstructing bilateral renal calculi. Stomach and bowel: No bowel wall thickening. No obstruction. No pneumatosis. Appendix: Normal. Intraperitoneal space: No free fluid. No organized fluid collection. No free air. Vasculature: Unremarkable. No aneurysm. Lymph nodes: No pathologically enlarged lymph nodes. Urinary bladder: Unremarkable as visualized. Reproductive: Unremarkable. Bones/joints: No acute osseous abnormality. Soft tissues: Unremarkable. CT/CT kidney stone [id number] IMPRESSION: 1. Moderate to severe right-sided hydroureteronephrosis and periureteral stranding, secondary to a 6 mm distal right ureteral calculus. 2. Additional findings, as above.
--- NOTE | 2022-12-23 18:03 | W.ED.FEMALGU ---
Documented by User: DIAZ Toussaint 12/24/22 01:25 HPI - Female Genitourinary General: Chief complaint: Urogenital-Female Stated complaint: abd/urinary pain Time Seen by Provider: 12/23/22 17:59 History of Present Illness: Patient is a 37-year-old female comes to the ED with right flank pain. Patient has a history of kidney stones. Last night patient developed right flank pain. This morning she passed 3 small kidney stones but is still having right flank pain and nausea. She reports her pain currently at 10 out of 10. She has not taken anything for pain today. Endorses nausea and has had a couple episodes of emesis as well. Endorses visible blood in urine. Denies any fevers. Associated symptoms: Deny abdominal pain, headache(s) or nausea Review of Systems Const: Denies: fever(s), chills or fatigue Eyes: Denies: change in vision or eye discomfort ENMT: Denies: throat pain, odynophagia, nasal discharge or nasal congestion Card: Denies: chest pain, palpitations, edema, swelling of feet/ankles, dyspnea on exertion or orthopnea Resp: Denies: dyspnea, productive cough or non-productive cough GI: Denies: abdominal pain, nausea, vomiting, diarrhea, constipation or hematochezia : Reports: flank pain (Right) and hematuria; Denies: dysuria Musc: Denies: neck pain, back pain or extremity swelling Skin/Breast: Denies: rash or new lesions Neuro: Denies: headache(s), numbness in extremities or weakness in extremities PFS ED PFSH: Medical History Bilateral kidney stones delivery delivered x 5 H/O clavicle fracture Recurrent UTI Surgical History Status post laser lithotripsy of ureteral calculus Status post placement of ureteral stent Family History Mother , age 50 Cancer throat Lung disease Father Multiple sclerosis Social History Smoking and tobacco status: former smoker Alcohol intake: never Marital status: Current occupational status: unemployed Physical Exam Const: COMMON NORMALS: patient oriented x3 and alert GENERAL APPEARANCE: cooperative and in distress (Patient appears in a lot of pain.) HENMT: COMMON NORMALS: normocephalic HEAD & SCALP: normocephalic MOUTH: Normal oral and palatal mucosa present THROAT: posterior oropharynx normal and uvula midline Neck/C-Spine: COMMON NORMALS: supple GENERAL: Yes normal visual inspection Resp: COMMON NORMALS: normal respiratory effort, No retractions, No use of accessory muscles and clear to auscultation bilaterally AUSCULTATION: clear to auscultation bilaterally Cardio: COMMON NORMALS: regular rate, regular rhythm, S1 normal heart sound present, S2 normal heart sound present, No gallops present (Cardio), No clicks present (Cardio), No murmurs present (Cardio) and Peripheral pulses 2+ throughout RATE: regular rate RHYTHM: regular rhythm HEART SOUNDS: S1 normal heart sound present and S2 normal heart sound present PERIPHERAL PULSES: Peripheral pulses 2+ throughout GI: COMMON NORMALS: Normal to inspection, nondistended, normoactive bowel sounds present, Soft to palpation, non-tender and no masses PALPATION: Yes Soft to palpation : BLADDER/KIDNEY EXAM: Yes CVA tenderness on the right Back/Pelvis: GENERAL BACK: Yes CVA tenderness Extremity: COMMON NORMALS: normal to inspection Neuro: COMMON NORMALS: patient oriented x3 SENSORIUM/ORIENTATION: Yes alert GAIT: Yes Normal gait present Skin: GENERAL SKIN EXAM: dry skin Course Vital Signs: Vital signs: Vital Signs Temperature 97.4 F L 12/23/22 17:08 Pulse Rate 74 12/24/22 02:28 Respiratory Rate 18 12/24/22 02:28 Blood Pressure 126/82 12/24/22 02:28 Pulse Oximetry 96 12/24/22 02:28 Oxygen Delivery Me thod 12/23/22 23:14 MDM - Female Medical Decision Making Patient is a 37-year-old female comes to the ED with right flank pain. Patient has a history of kidney stones. Last night patient developed right flank pain. This morning she passed 3 small kidney stones but is still having right flank pain and nausea. She reports her pain currently at 10 out of 10. She has not taken anything for pain today. Endorses nausea and has had a couple episodes of emesis as well. Endorses visible blood in urine. Denies any fevers. Vitals stable. Patient appears in some pain and is having hard time getting comfortable on exam bed. She has right CVA tenderness. Rest of exam is benign. CBC is unremarkable. Potassium 3.1 and the rest of CMP are unremarkable. UA shows blood and signs of UTI. CT of abdomen pelvis shows moderate to severe right-sided hydroureter nephrosis with 6 mm obstructing stone in the distal right ureter. Patient was given IV Toradol here in the ED and symptoms improved. She was also given IV fluids, antibiotics and nausea meds here in the ED. She was given a dose of p.o. potassium chloride. I placed an order with case management for patient be referred to urologist for kidney stones. She was stable for discharge home and diagnosed with right-sided kidney stone and UTI. She was sent home with a prescription for hydrocodone, Zofran and Cipro. She was given strict return to ED precautions. Patient understood and agreed with plan. Lab Data I reviewed the patient's lab results. 12/23/22 17:25 12/23/22 17:25 Radiology Impressions Abdomen/Pelvis CT 12/23/22 18:02 IMPRESSION: 1. Moderate to severe right-sided hydroureteronephrosis and periureteral stranding, secondary to a 6 mm distal right ureteral calculus. 2. Additional findings, as above. Laboratory Results WBC 8.5 10^3/uL (4.0-10.0) 12/23/22 17: RBC 4.84 10^6/uL (4.1-5.3) 12/23/22 17: Hgb 11.5 g/dL (11.5-15.3) 12/23/22 17: Hct 37.7 % (37.0-47.0) 12/23/22 17: MCV 77.9 fl (81-99) L 12/23/22 17: MCH 23.8 pg (28.0-34.0) L 12/23/22 17: MCHC 30.5 g/dL (30.0-36.0) 12/23/22 17: RDW 16.9 % (12.1-15.1) H 12/23/22 17:25 Plt Count 361 10^3/cmm (130-400) 12/23/22 17: MPV 10.5 fL (7.4-10.4) H 12/23/22 17:25 Neut % (Auto) 54.6 % 12/23/22 17:25 Lymph % (Auto) 28.9 % 12/23/22 17:25 Maury % (Auto) 9.8 % 12/23/22 17:25 Eos % (Auto) 6.0 % 12/23/22 17:25 Baso % (Auto) 0.5 % 12/23/22 17: Neut # (Auto) 4.61 10^3/uL (1.8-7.7) 12/23/22 17:25 Lymph # (Auto) 2.4 10^3/uL (0.8-4.8) 12/23/22 17:25 Maury # (Auto) 0.8 10^3/uL (0.2-0.9) 12/23/22 17:25 Eos # (Auto) 0.5 10^3/uL (0.0-0.8) 12/23/22 17:25 Baso # (Auto) 0.0 10^3/uL (0.0-0.1) 12/23/22 17:25 Nucleated RBC % (auto) 0 % 12/23/22 17: Nucleated RBCs # 0.0 /100WBC 12/23/22 17:25 Sodium 137 mmol/L (136-145) 12/23/22 17:25 Potassium 3.1 mmol/L (3.5-5.1) L 12/23/22 17:25 Chloride 98 mmol/L (98-107) 12/23/22 17:25 Carbon Dioxide 22 mmol/L (22-29) 12/23/22 17:25 Anion Gap 20.1 (5-19) H 12/23/22 17:25 BUN 7 mg/dL (6-20) 12/23/22 17:25 Creatinine 0.4 mg/dL (0.5-0.9) L 12/23/22 17:25 GFR Calculation 177.7 mL/min (90-130) H 12/23/22 17:25 Glucose 139 mg/dL (65-115) H 12/23/22 17:25 Calculated Osmolality 284 mOsm/kg (285-295) L 12/23/22 17:25 Calcium 9.2 mg/dL (8.5-10.5) 12/23/22 17:25 Total Bilirubin 0.5 mg/dL (0.15-1.2) 12/23/22 17:25 AST 21 U/L (0-32) 12/23/22 17:25 ALT 16 U/L (0-33) 12/23/22 17:25 Alkaline Phosphatase 69 U/L (35-105) 12/23/22 17:25 Total Protein 7.3 g/dL (6.6-8.7) 12/23/22 17:25 Albumin 4.4 g/dL (3.5-5.2) 12/23/22 17:25 Globulin 2.9 g/dL (1.3-4.6) 12/23/22 17:25 Lipase 18 U/L (13-60) 12/23/22 17:25 HCG, Qual Negative (Negative) 12/23/22 19:52 Urine Color Hall (Yellow) 12/23/22 19:52 Urine Appearance Clear (CLEAR) 12/23/22 19:52 Urine pH 6 (5-7) 12/23/22 19:52 Ur Specific [place] 1.020 (1.005-1.030) 12/23/22 19:52 Urine Protein 2+ (Negative) H 12/23/22 19:52 Urine Glucose (UA) Norm (Normal) 12/23/22 19:52 Urine Ketones 3+ (Negative) H 12/23/22 19:52 Urine Blood 2+ (Negative) H 12/23/22 19:52 Urine Nitrate Positive (Negative) H 12/23/22 19:52 Urine Bilirubin 2+ (Negative) H 12/23/22 19:52 Urine Urobilinogen 4 mg/dL (Negative) H 12/23/22 19:52 Ur Leukocyte Esterase Trace (Negative) H 12/23/22 19:52 Urine RBC 5-10 /hpf (0-2) H 12/23/22 19:52 Urine WBC 10-15 /hpf (0-5) H 12/23/22 19:52 Ur Squamous Epith Cells 0-4 /hpf (0-5) H 12/23/22 19:52 Amorphous Sediment Not Reportable 12/23/22 19:52 Urine Bacteria 1+ /hpf (NONE) H 12/23/22 19:52 Urine Mucus Trace /hpf 12/23/22 19:52 Discharge Plan Discharge Patient Disposition: Home Clinical Impression: Kidney stone on right side UTI (urinary tract infection) Qualifiers: Urinary tract infection type: acute cystitis Hematuria presence: with hematuria Qualified Code(s): N30.01 - Acute cystitis with hematuria Condition: Stable Prescriptions: New ondansetron 4 mg tablet,disintegrating 4 mg PO Q8H PRN (Reason: nausea and vomiting) Qty: 20 0RF tamsulosin 0.4 mg capsule 0.4 mg PO DAILY Qty: 20 0RF Rx Instructions: Take 1 capsule daily until you pass kidney stone. ciprofloxacin HCl 500 mg tablet 500 mg PO BID 7 Days Qty: 14 0RF No Action levothyroxine 100 mcg Tablet 100 mcg PO BID buspirone 5 mg tablet 5 mg PO BID Tylenol Ex Str Rapid Release 500 mg Tablet 500 - 1,000 mg PO Q6H PRN (Reason: Pain) sertraline 25 mg tablet 25 mg PO BID hydrocodone-acetaminophen 5-325 mg tablet 1 tab PO Q6H PRN (Reason: pain) Qty: 20 0RF Discharge Orders: Discharge ED (Routine); Ordered 12/23/22 Ordered By: Kings Harrell Referrals: Isaias Restrepo FNP [Primary Care Provider] - Discharge Diet: Regular Discharge Activity: Increase activity as tolerated Patient Instructions: Kidney Stones (ED), Urinary Tract Infection in Women (DC), Opioid Safety Activity Restrictions/Additional Instructions: Follow-up with medical provider as directed. Case management should contact you in the next several days to set up an appointment with a neurologist for follow-up. You can take the prescribed tamsulosin daily, but stopped taking it daily after you passed kidney stone. take medications as prescribed. Return to the ER or your medical provider if condition worsens. Please read and understand discharge instructions. Thank you for choosing [facility] for your healthcare needs today. Please realize this is an emergency room and that we are providing you with a medical screening exam and this may not be complete and all inclusive of all the testing and or work up that you may need to determine your ailment or severity of your illness. It is very important that you follow up as instructed or that you return to the Emergency Department should you have concerns or if your condition changes or worsens in any way. 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 [employer] Fwd Documented by User: Al Yanes DO 12/24/22 23:47 HPI - Female Genitourinary General: Chief complaint: Urogenital-Female Stated complaint: abd/urinary pain Time Seen by Provider: 12/23/22 17:59 PFSH ED PFSH: Medical History Bilateral kidney stones delivery delivered x 5 H/O clavicle fracture Recurrent UTI Surgical History Status post laser lithotripsy of ureteral calculus Status post placement of ureteral stent Family History Mother , age 50 Cancer throat Lung disease Father Multiple sclerosis Social History Smoking and tobacco status: former smoker Alcohol intake: never Marital status: Current occupational status: unemployed Course Vital Signs: Vital signs: Vital Signs Temperature 97.4 F L 12/23/22 17:08 Pulse Rate 74 12/24/22 02:28 Respiratory Rate 18 12/24/22 02:28 Blood Pressure 126/82 12/24/22 02:28 Pulse Oximetry 96 12/24/22 02:28 Oxygen Delivery Me thod 12/23/22 23:14 MDM - Female Medical Decision Making Patient is a 37-year-old female comes to the ED with right flank pain. Patient has a history of kidney stones. Last night patient developed right flank pain. This morning she passed 3 small kidney stones but is still having right flank pain and nausea. She reports her pain currently at 10 out of 10. She has not taken anything for pain today. Endorses nausea and has had a couple episodes of emesis as well. Endorses visible blood in urine. Denies any fevers. Vitals stable. Patient appears in some pain and is having hard time getting comfortable on exam bed. She has right CVA tenderness. Rest of exam is benign. CBC is unremarkable. Potassium 3.1 and the rest of CMP are unremarkable. UA shows blood and signs of UTI. CT of abdomen pelvis shows moderate to severe right-sided hydroureter nephrosis with 6 mm obstructing stone in the distal right ureter. Patient was given IV Toradol here in the ED and symptoms improved. She was also given IV fluids, antibiotics and nausea meds here in the ED. She was given a dose of p.o. potassium chloride. I placed an order with case management for patient be referred to urologist for kidney stones. She was stable for discharge home and diagnosed with right-sided kidney stone and UTI. She was sent home with a prescription for hydrocodone, Zofran and Cipro. She was given strict return to ED precautions. Patient understood and agreed with plan. This patient was initially seen by Mr. Sharri PA-C. I agree with his history, evaluation, and treatment. Lab Data 12/23/22 17:25 12/23/22 17:25 Radiology Impressions Abdomen/Pelvis CT 12/23/22 18:02 IMPRESSION: 1. Moderate to severe right-sided hydroureteronephrosis and periureteral stranding, secondary to a 6 mm distal right ureteral calculus. 2. Additional findings, as above. Laboratory Results WBC 8.5 10^3/uL (4.0-10.0) 12/23/22 17: RBC 4.84 10^6/uL (4.1-5.3) 12/23/22 17: Hgb 11.5 g/dL (11.5-15.3) 12/23/22 17: Hct 37.7 % (37.0-47.0) 12/23/22 17: MCV 77.9 fl (81-99) L 12/23/22 17: MCH 23.8 pg (28.0-34.0) L 12/23/22 17: MCHC 30.5 g/dL (30.0-36.0) 12/23/22 17: RDW 16.9 % (12.1-15.1) H 12/23/22 17:25 Plt Count 361 10^3/cmm (130-400) 12/23/22 17: MPV 10.5 fL (7.4-10.4) H 12/23/22 17:25 Neut % (Auto) 54.6 % 12/23/22 17:25 Lymph % (Auto) 28.9 % 12/23/22 17:25 Maury % (Auto) 9.8 % 12/23/22 17:25 Eos % (Auto) 6.0 % 12/23/22 17:25 Baso % (Auto) 0.5 % 12/23/22 17: Neut # (Auto) 4.61 10^3/uL (1.8-7.7) 12/23/22 17:25 Lymph # (Auto) 2.4 10^3/uL (0.8-4.8) 12/23/22 17:25 Maury # (Auto) 0.8 10^3/uL (0.2-0.9) 12/23/22 17:25 Eos # (Auto) 0.5 10^3/uL (0.0-0.8) 12/23/22 17:25 Baso # (Auto) 0.0 10^3/uL (0.0-0.1) 12/23/22 17:25 Nucleated RBC % (auto) 0 % 12/23/22 17: Nucleated RBCs # 0.0 /100WBC 12/23/22 17:25 Sodium 137 mmol/L (136-145) 12/23/22 17:25 Potassium 3.1 mmol/L (3.5-5.1) L 12/23/22 17:25 Chloride 98 mmol/L (98-107) 12/23/22 17:25 Carbon Dioxide 22 mmol/L (22-29) 12/23/22 17:25 Anion Gap 20.1 (5-19) H 12/23/22 17:25 BUN 7 mg/dL (6-20) 12/23/22 17:25 Creatinine 0.4 mg/dL (0.5-0.9) L 12/23/22 17:25 GFR Calculation 177.7 mL/min (90-130) H 12/23/22 17:25 Glucose 139 mg/dL (65-115) H 12/23/22 17:25 Calculated Osmolality 284 mOsm/kg (285-295) L 12/23/22 17:25 Calcium 9.2 mg/dL (8.5-10.5) 12/23/22 17:25 Total Bilirubin 0.5 mg/dL (0.15-1.2) 12/23/22 17:25 AST 21 U/L (0-32) 12/23/22 17:25 ALT 16 U/L (0-33) 12/23/22 17:25 Alkaline Phosphatase 69 U/L (35-105) 12/23/22 17:25 Total Protein 7.3 g/dL (6.6-8.7) 12/23/22 17:25 Albumin 4.4 g/dL (3.5-5.2) 12/23/22 17:25 Globulin 2.9 g/dL (1.3-4.6) 12/23/22 17:25 Lipase 18 U/L (13-60) 12/23/22 17:25 HCG, Qual Negative (Negative) 12/23/22 19:52 Urine Color Hall (Yellow) 12/23/22 19:52 Urine Appearance Clear (CLEAR) 12/23/22 19:52 Urine pH 6 (5-7) 12/23/22 19:52 Ur Specific [place] 1.020 (1.005-1.030) 12/23/22 19:52 Urine Protein 2+ (Negative) H 12/23/22 19:52 Urine Glucose (UA) Norm (Normal) 12/23/22 19:52 Urine Ketones 3+ (Negative) H 12/23/22 19:52 Urine Blood 2+ (Negative) H 12/23/22 19:52 Urine Nitrate Positive (Negative) H 12/23/22 19:52 Urine Bilirubin 2+ (Negative) H 12/23/22 19:52 Urine Urobilinogen 4 mg/dL (Negative) H 12/23/22 19:52 Ur Leukocyte Esterase Trace (Negative) H 12/23/22 19:52 Urine RBC 5-10 /hpf (0-2) H 12/23/22 19:52 Urine WBC 10-15 /hpf (0-5) H 12/23/22 19:52 Ur Squamous Epith Cells 0-4 /hpf (0-5) H 12/23/22 19:52 Amorphous Sediment Not Reportable 12/23/22 19:52 Urine Bacteria 1+ /hpf (NONE) H 12/23/22 19:52 Urine Mucus Trace /hpf 12/23/22 19:52 Discharge Plan Discharge Patient Disposition: Home Clinical Impression: Kidney stone on right side UTI (urinary tract infection) Qualifiers: Urinary tract infection type: acute cystitis Hematuria presence: with hematuria Qualified Code(s): N30.01 - Acute cystitis with hematuria Condition: Stable Prescriptions: New ondansetron 4 mg tablet,disintegrating 4 mg PO Q8H PRN (Reason: nausea and vomiting) Qty: 20 0RF tamsulosin 0.4 mg capsule 0.4 mg PO DAILY Qty: 20 0RF Rx Instructions: Take 1 capsule daily until you pass kidney stone. ciprofloxacin HCl 500 mg tablet 500 mg PO BID 7 Days Qty: 14 0RF No Action levothyroxine 100 mcg Tablet 100 mcg PO BID buspirone 5 mg tablet 5 mg PO BID Tylenol Ex Str Rapid Release 500 mg Tablet 500 - 1,000 mg PO Q6H PRN (Reason: Pain) sertraline 25 mg tablet 25 mg PO BID hydrocodone-acetaminophen 5-325 mg tablet 1 tab PO Q6H PRN (Reason: pain) Qty: 20 0RF Discharge Orders: Discharge ED (Routine); Ordered 12/23/22 Ordered By: Kings Harrell Referrals: Isaias Restrepo FNP [Primary Care Provider] - Discharge Diet: Regular Discharge Activity: Increase activity as tolerated Patient Instructions: Kidney Stones (ED), Urinary Tract Infection in Women (DC), Opioid Safety Activity Restrictions/Additional Instructions: Follow-up with medical provider as directed. Case management should contact you in the next several days to set up an appointment with a neurologist for follow-up. You can take the prescribed tamsulosin daily, but stopped taking it daily after you passed kidney stone. take medications as prescribed. Return to the ER or your medical provider if condition worsens. Please read and understand discharge instructions. Thank you for choosing [facility] for your healthcare needs today. Please realize this is an emergency room and that we are providing you with a medical screening exam and this may not be complete and all inclusive of all the testing and or work up that you may need to determine your ailment or severity of your illness. It is very important that you follow up as instructed or that you return to the Emergency Department should you have concerns or if your condition changes or worsens in any way. 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 Prisca Case
[2022-12-23 18:22] VITALS: RESP 20
[2022-12-23] MEDS: ondansetron 2 mg/ML SDV 2 mL 4 MG IVP (18:22)
[2022-12-23] MEDS: morphine 4 mg/mL SDV 1 mL IVP (18:22)
[2022-12-23] MEDS: sodium chloride 0.9% 500 ML 999 ML IV (18:24)
[2022-12-23 19:45] VITALS: RESP 24
[2022-12-23] MEDS: LORazepam 2 mg/mL INJ 1 mL 0.5 MG IVP (19:45)
[2022-12-23] MEDS: HYDROmorphone 1 mg/mL INJ 1 mL IVP (19:45)
[2022-12-23 20:02] LABS: Blood Urine 2+ (Negative); Glucose Urine UA Norm (Normal); Ketones Urine 3+ (Negative); Nitrate Urine Positive (Negative); Protein Urine 2+ (Negative); Urine Appearance Clear (CLEAR); Urine Color Orange (Yellow); pH Urine 6 (5-7)
[2022-12-23 20:03] LABS: Add Urine Microscopic? YES; Bilirubin Urine 2+ (Negative); Leukocyte Esterase Urine Trace (Negative); Urobilinogen Urine 4 mg/dL (Negative)
[2022-12-23 20:11] LABS: HCG Qualitative Urine. Negative (Negative)
[2022-12-23 20:14] LABS: Squamous Epithelial Cell Urine 0-4 /hpf (0-5)
[2022-12-23 20:15] LABS: Add Urine Culture? Yes; Bacteria Urine 1+ /hpf; Mucus Urine TRACE /hpf
[2022-12-23] MEDS: ketorolac 30 mg/mL INJ IVP (21:30)
[2022-12-23] MEDS: ciprofloxacin 400 MG/200 ML PREMIX 200 MG IV (21:35)
[2022-12-23] MEDS: metoclopramide 5 mg/mL SDV 2 mL 10 MG IVP (22:42)
[2022-12-23] MEDS: potassium chloride ER 20 mEq Tablet PO (22:49)
--- NOTE | 2022-12-23 22:57 | PC.NURSE ---
Patient sent home with 2x Oxycodone 5/325 per DIAZ Harrell's orders.
[2022-12-23 23:14] VITALS: BP 126/82; PULSE 74; RESP 18; O2SAT 96
[2022-12-24 02:28] VITALS: BP 126/82; PULSE 74; RESP 18; O2SAT 96
--- NOTE | 2022-12-24 10:06 | DCPLANNER ---
Addendum entered by Jimena Kang 12/26/22 07:47: Patient had an appointment scheduled for 12.26.22 at urology - patient did attend appointment. Original Note: it operations manager had message to schedule a follow up appointment for patient with urology. it operations manager sent patients information to the front office staff at urology. Patients information will be printed and reviewed. Clinic will call patient with appointment information.
== END 2022-12-23 23:18 | disposition home or self-care (01) ==
PROVIDERS: Emergency Medicine; Emergency Provider Physician Assistant; PCP Nurse Practitioner
DX: N30.01 Acute cystitis with hematuria (principal); N20.0 Calculus of kidney
CPT/HCPCS: 36415; 74176; 80053; 81001; 81025; 83690; 85025; 87086; 96365; 96375; 99285; J0744; J1170; J1885; J2060; J2270; J2405; J2765; J7040

== ENCOUNTER 2022-12-25 07:34 | Outpatient (CLI) | payer BC, MEDICAID, SELFPAY ==
--- NOTE | 2022-12-25 07:44 | XRR_ITS ---
PROCEDURE INFORMATION: Exam: XR Abdomen Exam date and time: 12/25/2022 8:24 AM Age: 37 years old Clinical indication: Condition or disease; Kidney or ureter condition; Calculus (stone) in kidney; Prior surgery; Surgery type: Multiple c-sections; Patient HX: Kidney stones, pain on right side; Additional info: Stones, kub ozh 12/25/22 @ 7:30 am appt to follow TECHNIQUE: Imaging protocol: Radiologic exam of the abdomen. Views: Frontal supine view of the abdomen. 1 View. COMPARISON: CT kidney stone [id number] 12/23/2022 8:21 PM FINDINGS: Gastrointestinal tract: Nonspecific nonobstructive bowel gas pattern. No indication of free air. Organs: Small calcifications s are seen overlying the renal shadows suggesting bilateral renal calculi. No significant pelvic calcifications. Bones/joints: No acute osseous abnormality. XR/XR KUB [id number] IMPRESSION: Nonspecific nonobstructive bowel gas pattern. Suggestion of bilateral renal calculi.
== END 2022-12-25 07:35 | disposition home or self-care (01) ==
PROVIDERS: PCP Nurse Practitioner; Visit Provider Urology
DX: N20.0 Calculus of kidney (principal)
CPT/HCPCS: 74018

== ENCOUNTER 2023-01-26 13:16 | Emergency (ER) | payer BC, MEDICAID, SELFPAY ==
[2023-01-26 13:25] VITALS: BP 167/90; PULSE 107; RESP 20; TEMP 37.1; O2SAT 99
--- NOTE | 2023-01-26 13:38 | CTR_ITS ---
PROCEDURE INFORMATION: Exam: CT Chest Without Contrast; Diagnostic Exam date and time: 01/26/2023 2:27 PM Age: 37 years old Clinical indication: Pain and injury or trauma; Other: Lawnmower rolled over PT; Blunt trauma (contusions or hematomas) and crushing; Left-sided; Prior surgery; Surgery type: Right clavicle; Additional info: L chest pain/trauma TECHNIQUE: Imaging protocol: Diagnostic computed tomography of the chest without contrast. Radiation optimization: All CT scans at this facility use at least one of these dose optimization techniques: automated exposure control; mA and/or kV adjustment per patient size (includes targeted exams where dose is matched to clinical indication); or iterative reconstruction. REPORTING DATA: Count of CT and Cardiac NM exams in prior 12 months: This patient has received 3 known CTs and 0 known cardiac nuclear medicine studies in the 12 months prior to the current study. COMPARISON: CR (CHEST, ) 01/26/2023 1:53 PM RADIATION DOSE METRICS: Total DLP (mGy-cm): 239.69 FINDINGS: Lungs: Unremarkable. No consolidation. No masses. Pleural spaces: Unremarkable. No pneumothorax. No pleural effusion. Heart: Unremarkable. No cardiomegaly. No pericardial effusion. Lymph nodes: Calcified lymph nodes seen in the precarinal and right hilar soft tissues. There are no pathologic appearing enlarged lymph nodes. Vasculature: Unremarkable. No aortic aneurysm. Bones/joints: Unremarkable. No acute fracture. Soft tissues: Multiple calcified caliceal stones are seen in both kidneys CT/CT chest wo con [id number] IMPRESSION: 1. No acute findings. 2. Calcified granuloma in the precarinal and right hilar soft tissues 3. Multiple caliceal stones in both kidneys
--- NOTE | 2023-01-26 13:38 | XRR_ITS ---
PROCEDURE INFORMATION: Exam: XR Chest Exam date and time: 01/26/2023 1:53 PM Age: 37 years old Clinical indication: Injury or trauma; Other: Lawnmower rollover; Blunt trauma (contusions or hematomas); Prior surgery; Surgery date: 6+ months; Surgery type: R clavicle; Additional info: Chest pain/trauma TECHNIQUE: Imaging protocol: Radiologic exam of the chest. Views: 1 view. COMPARISON: CR XR chest 2V* [id number] 02/13/2019 11:41 PM FINDINGS: Lungs: Unremarkable. No consolidation. Pleural spaces: Unremarkable. No pleural effusion. No pneumothorax. Heart/Mediastinum: Unremarkable. No cardiomegaly. Bones/joints: Metallic plate and screws are present in the right clavicle stable since prior XR/XR chest 1V portable [id number] IMPRESSION: 1. No acute findings. 2. Stable hardware right clavicle
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
[2023-01-26 13:49] VITALS: RESP 20; O2SAT 98
[2023-01-26] MEDS: morphine 4 mg/mL SDV 1 mL IVP (13:49)
[2023-01-26] MEDS: ondansetron 2 mg/ML SDV 2 mL 4 MG IVP (13:50)
[2023-01-26 14:04] LABS: Basophils % 0.3 %; Eosinophils # 0.2 10^3/uL (0.0-0.8); Hematocrit 37.9 % (37.0-47.0); Hemoglobin 11.4 g/dL (11.5-15.3); Lymphocytes # 1.6 10^3/uL (0.8-4.8); Lymphocytes % 16.2 %; Mean Corpuscular HGB Conc 30.1 g/dL (30.0-36.0); Mean Corpuscular Hemoglobin 22.8 pg (28.0-34.0); Mean Platelet Volume 10.2 fL (7.4-10.4); Monocytes # 0.7 10^3/uL (0.2-0.9); Monocytes % 6.7 %; Neutrophils # 7.52 10^3/uL (1.8-7.7); Neutrophils % 74.5 %; Nucleated Red Blood Cells % 0 %; Platelet Count 330 10^3/cmm (130-400); Red Blood Count 4.99 10^6/uL (4.1-5.3); Red Cell Distribution Width 18.3 % (12.1-15.1); White Blood Count 10.1 10^3/uL (4.0-10.0)
[2023-01-26 14:26] LABS: Alanine Aminotransferase 10 U/L (0-33); Albumin Level 4.2 g/dL (3.5-5.2); Alkaline Phosphatase 88 U/L (35-105); Anion Gap 18.6 (5-19); Aspartate Amino Transferase 16 U/L (0-32); Blood Urea Nitrogen 7 mg/dL (6-20); Calcium 9.2 mg/dL (8.5-10.5); Carbon Dioxide 19 mmol/L (22-29); Chloride 106 mmol/L (98-107); Globulin 2.9 g/dL (1.3-4.6); Glomerular Filtration Rate 247.7 mL/min (90-130); Glucose 78 mg/dL (65-115); Osmolality Calculated 287 mOsm/kg (285-295); Potassium 3.6 mmol/L (3.5-5.1); Sodium 140 mmol/L (136-145); Total Bilirubin 0.6 mg/dL (0.15-1.2); Total Protein 7.1 g/dL (6.6-8.7)
[2023-01-26 14:28] VITALS: BP 120/88; PULSE 97; O2SAT 97
[2023-01-26 14:46] VITALS: RESP 16; O2SAT 96
[2023-01-26] MEDS: HYDROmorphone 1 mg/mL INJ 1 mL 0.5 MG IVP (14:46)
[2023-01-26 15:32] VITALS: BP 141/85; PULSE 92; O2SAT 98
== END 2023-01-26 15:33 | disposition home or self-care (01) ==
PROVIDERS: Emergency Provider Physician Assistant; PCP Nurse Practitioner
DX: S20.212A Contusion of left front wall of thorax, initial encounter (principal); N20.0 Calculus of kidney; L92.8 Other granulomatous disorders of the skin and subcutaneous tissue; Z87.891 Personal history of nicotine dependence; V84.5XXA Driver of special agricultural vehicle injured in nontraffic accident, initial encounter; Y93.H2 Activity, gardening and landscaping; Z87.442 Personal history of urinary calculi
CPT/HCPCS: 71045; 71250; 80053; 85025; 96374; 96375; 99285; J1170; J2270; J2405

== ENCOUNTER 2023-02-26 22:04 | Emergency (ER) | payer BC, MEDICAID, SELFPAY ==
[2023-02-26 22:21] VITALS: BP 126/70; PULSE 91; RESP 14; TEMP 37.2; O2SAT 99
--- NOTE | 2023-02-26 22:27 | XRR_ITS ---
PROCEDURE INFORMATION: Exam: XR Left Ankle Exam date and time: 02/26/2023 10:35 PM Age: 37 years old Clinical indication: Injury or trauma; Other: Twisted lt ankle; Sprain or strain; Left TECHNIQUE: Imaging protocol: Radiologic exam of the left ankle. Views: 3 or more views. COMPARISON: No relevant prior studies available. FINDINGS: Bones/joints: No acute osseous abnormality. No dislocation. Soft tissues: Anterior and lateral left ankle soft tissue swelling consistent with ankle sprain. XR/XR ankle LT min 3V* [id number] IMPRESSION: 1. No evidence of acute fracture or dislocation. 2. Anterior and lateral left ankle soft tissue swelling consistent with ankle sprain.
--- NOTE | 2023-02-26 22:28 | ED_ITS ---
HPI - Extremity Problem General: Chief complaint: Extremity Injury, Lower Stated complaint: left ankle injury Time Seen by Provider: 02/26/23 22:28 History of Present Illness: 37-year-old female comes in today for complaints of injury to the left ankle. Patient reports she was stepping off the last step of her porch when she stepped into a hole turning her ankle. Patient has lateral pain to the ankle and difficulty with standing on the ankle due to pain. Swelling is noted to the ankle but no obvious deformity. Associated symptoms: Deny chest pain, fever(s) or rash Review of Systems Const: Denies: fever(s) Card: Denies: chest pain Resp: Denies: dyspnea Musc: Reports: extremity pain Skin/Breast: Denies: rash PFSH ED PFSH: Medical History Bilateral kidney stones delivery delivered x 5 H/O clavicle fracture Recurrent UTI Surgical History Status post laser lithotripsy of ureteral calculus Status post placement of ureteral stent Family History Mother , age 50 Cancer throat Lung disease Father Multiple sclerosis Social History Smoking and tobacco status: former smoker Alcohol intake: never Marital status: Current occupational status: unemployed Physical Exam Const: COMMON NORMALS: alert HENMT: COMMON NORMALS: normocephalic HEAD & SCALP: normocephalic Neck/C-Spine: COMMON NORMALS: full ROM Resp: COMMON NORMALS: normal respiratory effort and clear to auscultation bilaterally AUSCULTATION: clear to auscultation bilaterally Cardio: COMMON NORMALS: regular rate and regular rhythm RATE: regular rate RHYTHM: regular rhythm GI: COMMON NORMALS: non-tender Extremity: LEFT LOWER EXTREMITY: Yes ankle joint (Lateral swelling, good pulses, intact sensation) Left ankle: Yes inspection, Yes palpation, Yes ROM and Yes neurovascular exam Neuro: SENSORIUM/ORIENTATION: Yes alert Skin: COMMON NORMALS: no rashes or lesions noted GENERAL SKIN EXAM: no rashes or lesions noted Course Vital Signs: Vital signs: Vital Signs Temperature 98.9 F 02/26/23 22:21 Pulse Rate 91 02/26/23 22:21 Respiratory Rate 14 02/26/23 22:21 Blood Pressure 126/70 02/26/23 22:21 Pulse Oximetry 99 02/26/23 22:21 Oxygen Delivery Me thod Room Air 02/26/23 22:21 MDM - Extremity (Nontraumatic) Medical Decision Making 37-year-old female comes in today for complaints of injury to the left ankle. On exam patient has has lateral swelling to the ankle. Distal pulses and sensation are intact. Decreased range of motion due to swelling and pain. Differential diagnosis includes fracture, sprain, dislocation. X-ray notes no fracture or dislocation. Reviewed exam with patient with recommendations for treatment and follow-up. Patient reported understanding. Discharge Plan Discharge Patient Disposition: Home Clinical Impression: Ankle sprain and strain Condition: Stable Prescriptions: New hydrocodone-acetaminophen 5-325 mg tablet 1 tab PO Q8H PRN (Reason: pain (scale score 7-10)) Qty: 6 0RF No Action hydrocodone-acetaminophen 5-325 mg tablet 1 tab PO Q6H PRN (Reason: Renal colic) 5 Days Qty: 20 0RF levothyroxine 100 mcg Tablet 100 mcg PO BID buspirone 5 mg tablet 5 mg PO BID Tylenol Ex Str Rapid Release 500 mg Tablet 500 - 1,000 mg PO Q6H PRN (Reason: Pain) sertraline 25 mg tablet 25 mg PO BID ondansetron 4 mg tablet,disintegrating 4 mg PO Q8H PRN (Reason: nausea and vomiting) Qty: 20 0RF tamsulosin 0.4 mg capsule 0.4 mg PO DAILY Qty: 20 0RF Rx Instructions: Take 1 capsule daily until you pass kidney stone. hydrocodone-acetaminophen 5-325 mg tablet 1 tab PO Q6H PRN (Reason: pain) Qty: 14 0RF diclofenac sodium 50 mg tablet,delayed release (DR/EC) 50 mg PO Q12H PRN (Reason: pain) Qty: 20 0RF Discharge Orders: Discharge ED (Routine); Ordered 02/26/23 Ordered By: Bryant Gruber Referrals: Isaias Restrepo, HONING MACHINE OPERATOR SEMIAUTOMATIC [Primary Care Provider] - Discharge Diet: Usual diet Discharge Activity: Increase activity as tolerated Patient Instructions: Ankle Sprain (ED) Activity Restrictions/Additional Instructions: Increase activity as tolerated. Wear an elastic bandage for comfort. Use crutches until he can walk comfortably on the ankle. Follow-up with primary care in 1 week for recheck. Return to ED for new concerns. Stand Alone Forms: Work/School Release Coding Level of Care Code ED Light Bulb Assembler for Prisca Case
[2023-02-26] MEDS: HYDROcodone-acetaminophen 5-325 mg Tablet 1 TAB PO (23:01)
== END 2023-02-26 23:06 | disposition home or self-care (01) ==
PROVIDERS: Emergency Provider Nurse Practitioner Family; PCP Nurse Practitioner
DX: S93.402A Sprain of unspecified ligament of left ankle, initial encounter (principal); S96.912A Strain of unspecified muscle and tendon at ankle and foot level, left foot, initial encounter; Z87.891 Personal history of nicotine dependence; X50.1XXA Overexertion from prolonged static or awkward postures, initial encounter
CPT/HCPCS: 73610; 99283; E0114

== ENCOUNTER 2024-11-19 12:11 | Emergency (ER) | payer SELFPAY ==
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
[2024-11-19 12:27] VITALS: BP 144/85; PULSE 99; RESP 16; TEMP 36.8; O2SAT 98; BMI 23.3
[2024-11-19 13:18] VITALS: BP 158/82; PULSE 88; RESP 16; O2SAT 96
[2024-11-19 14:18] VITALS: BP 158/82; PULSE 88; RESP 16; O2SAT 96
== END 2024-11-19 13:23 | disposition home or self-care (01) ==
PROVIDERS: Emergency Provider Emergency Medicine; PCP Nurse Practitioner
DX: S09.8XXA Other specified injuries of head, initial encounter (principal); V89.2XXA Person injured in unspecified motor-vehicle accident, traffic, initial encounter; Z87.891 Personal history of nicotine dependence
CPT/HCPCS: 99281